=== PATIENT | female | born 1965 | race Caucasian/White ===

== ENCOUNTER 2024-04-16 13:52 | Outpatient (AMB) | payer BC, SELFPAY ==
[2024-04-16 14:08] VITALS: BP 138/60; PULSE 70; O2SAT 98; BMI 24.7
--- NOTE | 2024-04-16 14:08 | HO.NEPHOV_ITS ---
Vital Signs 04/16/24 14:08 Height 5 ft 6 in Weight 153 lb 4 oz BMI 24.7 BP 138/60 Blood Pressure Location Rt brachial Position Sitting Pulse 70 Pulse Source Pulse Oximeter Pulse Oximetry (%) 98 Oxygen Delivery Method Room Air Intake Visit Reasons: Prev Pt/ Conf Front Office Spec Required: No Accompanied by: Spouse Allergies No Known Allergies Allergy (Verified 04/16/24 14:10) Medication List - Last Reconciled 04/16/24 by Eleuterio Jefferson MD amlodipine 2.5 mg PO DAILY certolizumab pegol (Cimzia) mg subcut ferrous gluconate 324 mg PO BID hydroxychloroquine 200 mg PO BID HPI Comments Details: Cristiana 57 woman with a history of psoriatic arthritis, uveitis/MCTD/SLE. She was diagnosed with lupus more than 30 years ago. She was on Humira 40 mg weekly 2 doses and then every other week. She was referred back in 05/09/2022 for elevated serum creatinine 1.4. Since then creatinine has been between 1.1.2 mg/dL. In the past she had a trial of methotrexate which was discontinued due to hair loss. Recently she had a CT scan in 07/09/2023 which showed hilar adenopathy. She was seen by packaging design engineer and a CT scan with IV contrast has been recommended. Recent serum creatinine was 1.7 mg/dL. This is higher than the baseline. [facility] Medical History (Updated 04/16/24 @ 14:23 by Eleuterio Jefferson MD) Uveitis Psoriasis Mixed collagen vascular disease Hypertension Surgical History (Updated 04/15/24 @ 13:35 by Nydia Mcgraw MA) History of cholecystectomy Family History (Updated 04/15/24 @ 13:40 by Nydia Mcgraw MA) Mother Hypertension Diabetes Cancer Sister Diabetes Hypertension Brother Hypertension Diabetes Maternal Aunt Diabetes Cancer Social History (Updated 04/16/24 @ 14:13 by Nydia Mcgraw MA) Alcohol intake: current Comment: Rare Patient Tobacco Use Status: Current someday Tobacco user Review of Systems Const Denies fever(s) and Denies weight loss Card Denies chest pain Resp Denies cough and Denies hemoptysis GI Denies abdominal pain, Denies diarrhea and Denies nausea Musc Denies back pain Neuro Denies focal weakness Physical Exam Vital Signs: Last Vital Signs Pulse 70 04/16/24 14:08 BP 138/60 04/16/24 14:08 Pulse Ox 98 04/16/24 14:08 Oxygen Delivery Method Room Air 04/16/24 14:08 BMI result Body Mass Index 24.7 Const General: comfortable; No acute distress Orientation/consciousness: patient oriented x3 Eyes General: appearance normal, both eyes and all related structures Visual Salomon: normal visual salomon by confrontation Neck Neck: Yes supple and Yes no JVD Resp Effort & Inspection: normal respiratory effort and respiratory effort not decreased Auscultation: rhonchi Cardio Palpation: no palpable S3 and no palpable S4 Heart sounds: no rubs GI Inspection: Yes normal to inspection Palpation (GI): Soft to palpation Percussion: Yes normal to percussion Auscultation: normal bowel sounds General: Yes no CVA tenderness Back/Spine/Pelvis Back: no CVA tenderness Skin General skin exam: no petechiae and no purpura Neuro General: patient oriented x3 and no focal motor deficits Extrem General: No clubbing and No edema Results Reviewed Results Reviewed: Labs was reviewed Creatinine 1.7. Nephrology Results: No Data to Display Assessment & Plan Assessment & Plan (1) CKD (chronic kidney disease): Code(s): N18.9 - Chronic kidney disease, unspecified Category: Medical Plan Rolanda has chronic kidney disease with a baseline creatinine is around 1.4 mg/dL in the setting of connective tissue disease overlap syndrome/lupus/M CTD. Recently she was found to have mediastinal lymphadenopathy. Creatinine is bumped to 1.7. This may be due to hypoperfusion. Clinically she appears euvolemic no edema. Stop Lasix. Recheck renal panel without diuretics. She has at a risk for contrast induced nephropathy. If possible we should avoid IV contrast. However if the repeat serum creatinine is less than 1.5, we could consider CT scan with IV contrast. Other option would be to try alternate imaging techniques to evaluate the adenopathy without IV contrast. Orders: Orders Basic Metabolic Panel Today N18.9 - Chronic kidney disease, unspecified UA and rflx microscopic Today N18.9 - Chronic kidney disease, unspecified Creatinine Urine Today N18.9 - Chronic kidney disease, unspecified Total Protein Urine Random Today N18.9 - Chronic kidney disease, unspecified Coding Level of Care Code Est Pt Level 4 (64266) Diagnoses CKD (chronic kidney disease) N18.9
== END 2024-04-16 14:32 | disposition home or self-care (01) ==
PROVIDERS: Visit Provider Internal Medicine Hypertension Specialist
DX: N18.9 Chronic kidney disease, unspecified (principal)
CPT/HCPCS: 99214

== ENCOUNTER → 2024-04-16 13:52 | Outpatient (BNVA) | payer BC, SELFPAY | PROVIDERS: Visit Provider Internal Medicine Hypertension Specialist ==

== ENCOUNTER 2024-07-02 15:23 | Outpatient (AMB) | payer BC, SELFPAY ==
[2024-07-02 15:27] VITALS: BP 144/72; BMI 25.0
--- NOTE | 2024-07-02 15:27 | HO.NEPHOV_ITS ---
Vital Signs 07/02/24 15:27 Height 5 ft 6 in Weight 155 lb BMI 25.0 BP 144/72 H Blood Pressure Location Rt brachial Position Sitting Intake Visit Reasons: 3 mon follow up/ LVM Automotive Starter Repairer Required: No Accompanied by: Self / Same As Patient Allergies No Known Allergies Allergy (Verified 07/02/24 15:30) Medication List - Last Reconciled 07/02/24 by Eleuterio Jefferson MD amlodipine 2.5 mg PO DAILY certolizumab pegol (Cimzia) mg subcut ferrous gluconate 324 mg PO BID hydroxychloroquine 200 mg PO BID HPI Comments Details: Cristiana 57 woman with a history of psoriatic arthritis, uveitis/MCTD/SLE. She was diagnosed with lupus more than 30 years ago. She was on Humira 40 mg weekly 2 doses and then every other week. She was referred back in 05/09/2022 for elevated serum creatinine 1.4. Since then creatinine has been between 1.1.2 mg/dL. In the past she had a trial of methotrexate which was discontinued due to hair loss. Recently she had a CT scan in 07/09/2023 which showed hilar adenopathy. She was seen by bioinformatics support specialist and a CT scan with IV contrast has been recommended. Recent serum creatinine was 1.7 mg/dL. This is higher than the baseline. [facility] Medical History (Updated 04/16/24 @ 14:23 by Eleuterio Jefferson MD) Uveitis Psoriasis Mixed collagen vascular disease Hypertension Surgical History History of cholecystectomy Family History Mother Hypertension Diabetes Cancer Sister Diabetes Hypertension Brother Hypertension Diabetes Maternal Aunt Diabetes Cancer Social History Alcohol intake: current Comment: Rare Patient Tobacco Use Status: Current someday Tobacco user Physical Exam Vital Signs: Last Vital Signs BP 144/72 H 07/02/24 15:27 BMI result Body Mass Index 25.0 Const General: comfortable; No acute distress Orientation/consciousness: patient oriented x3 Eyes General: appearance normal, both eyes and all related structures Visual Salomon: normal visual salomon by confrontation Neck Neck: Yes supple and Yes no JVD Resp Effort & Inspection: normal respiratory effort and respiratory effort not decreased Auscultation: rhonchi Cardio Palpation: no palpable S3 and no palpable S4 Heart sounds: no rubs GI Inspection: Yes normal to inspection Palpation (GI): Soft to palpation Percussion: Yes normal to percussion Auscultation: normal bowel sounds General: Yes no CVA tenderness Back/Spine/Pelvis Back: no CVA tenderness Skin General skin exam: no petechiae and no purpura Neuro General: patient oriented x3 and no focal motor deficits Extrem General: No clubbing and No edema Results Reviewed Nephrology Results: No Data to Display Assessment & Plan Assessment & Plan (1) CKD (chronic kidney disease): Code(s): N18.9 - Chronic kidney disease, unspecified Category: Medical Plan Rolanda has chronic kidney disease with a baseline creatinine is around 1.4 mg/dL in the setting of connective tissue disease overlap syndrome/lupus/M CTD. Recently she was found to have mediastinal lymphadenopathy. Creatinine is bumped to 1.9. This may be due to hypoperfusion. Clinically she appears euvolemic no edema. Stopped Lasix and will repeat labs She has at a risk for contrast induced nephropathy. If possible we should avoid IV contrast. However if the repeat serum creatinine is less than 1.5, we could consider CT scan with IV contrast. Other option would be to try alternate imaging techniques to evaluate the adenopathy without IV contrast. BP sub optimal Increase Amlodipine to 5 mg QD stay on low salt diet. Orders: Orders Total Protein Urine Random Today N18.9 - Chronic kidney disease, unspecified UA and rflx microscopic Today N18.9 - Chronic kidney disease, unspecified Basic Metabolic Panel Today N18.9 - Chronic kidney disease, unspecified Creatinine Today N18.9 - Chronic kidney disease, unspecified Medications: Changed From amlodipine 2.5 mg PO DAILY To amlodipine 5 mg PO DAILY 90 tabs 1RF Coding Level of Care Code Est Pt Level 4 (29181) Diagnoses CKD (chronic kidney disease) N18.9
== END 2024-07-02 15:45 | disposition home or self-care (01) ==
PROVIDERS: Visit Provider Internal Medicine Hypertension Specialist
DX: N18.9 Chronic kidney disease, unspecified (principal)
CPT/HCPCS: 99214

== ENCOUNTER 2024-10-15 14:33 | Outpatient (AMB) | payer BC, SELFPAY ==
[2024-10-15 14:32] VITALS: BP 144/64; PULSE 79; O2SAT 100; BMI 24.9
--- NOTE | 2024-10-15 14:32 | HO.NEPHOV_ITS ---
Vital Signs 10/15/24 14:32 10/15/24 15:14 Height 5 ft 6 in Weight 154 lb BMI 24.9 BP 144/64 H 136/78 Blood Pressure Location Rt brachial Rt brachial Position Sitting Sitting Pulse 79 Pulse Source Pulse Oximeter Pulse Oximetry (%) 100 Oxygen Delivery Method Room Air Intake Visit Reasons: 3 Month Follow Up CKD/ Conf Nonprofit Fundraiser Required: No Accompanied by: Self / Same As Patient Allergies No Known Allergies Allergy (Verified 10/15/24 14:37) Medication List - Last Reconciled 10/15/24 by Eleuterio Jefferson MD amlodipine 5 mg PO DAILY certolizumab pegol (Cimzia) mg subcut ferrous gluconate 324 mg PO BID hydroxychloroquine 200 mg PO BID HPI Comments Details: Cristiana 57 woman with a history of psoriatic arthritis, uveitis/MCTD/SLE. She was diagnosed with lupus more than 30 years ago. She was on Humira 40 mg weekly 2 doses and then every other week. She was referred back in 05/09/2022 for elevated serum creatinine 1.4. Since then creatinine has been between 1.1.2 mg/dL. In the past she had a trial of methotrexate which was discontinued due to hair loss. Recently she had a CT scan in 07/09/2023 which showed hilar adenopathy. She was seen by supervisor type photography and a CT scan with IV contrast has been recommended. 10/15/24 Feels abdominal bloating; BM every 3 days. Takes Miralax Recent serum creatinine was 2.2 , up from 1.7 mg/dL. She had resp infection last month She was no specific complaints. Currently on Certolizimab [facility] Medical History (Updated 04/16/24 @ 14:23 by Eleuterio Jefferson MD) Uveitis Psoriasis Mixed collagen vascular disease Hypertension Surgical History History of cholecystectomy Family History Mother Hypertension Diabetes Cancer Sister Diabetes Hypertension Brother Hypertension Diabetes Maternal Aunt Diabetes Cancer Social History Alcohol intake: current Comment: Rare Patient Tobacco Use Status: Current someday Tobacco user Physical Exam Vital Signs: Last Vital Signs Pulse 79 10/15/24 14:32 BP 144/64 H 10/15/24 14:32 Pulse Ox 100 10/15/24 14:32 Oxygen Delivery Method Room Air 10/15/24 14:32 BMI result Body Mass Index 24.9 Const General: comfortable; No acute distress Orientation/consciousness: patient oriented x3 Eyes General: appearance normal, both eyes and all related structures Visual Salomon: normal visual salomon by confrontation Neck Neck: Yes supple and Yes no JVD Resp Effort & Inspection: normal respiratory effort and respiratory effort not decreased Auscultation: rhonchi Cardio Palpation: no palpable S3 and no palpable S4 Heart sounds: no rubs GI Inspection: Yes normal to inspection Palpation (GI): Soft to palpation Percussion: Yes normal to percussion Auscultation: normal bowel sounds General: Yes no CVA tenderness Back/Spine/Pelvis Back: no CVA tenderness Skin General skin exam: no petechiae and no purpura Neuro General: patient oriented x3 and no focal motor deficits Extrem General: No clubbing and No edema Results Reviewed Results Reviewed: cr 2.27 Nephrology Results: No Data to Display Assessment & Plan Assessment & Plan (1) CKD (chronic kidney disease): Code(s): N18.9 - Chronic kidney disease, unspecified Category: Medical Plan Rolanda has chronic kidney disease with a baseline creatinine is around 1.4 mg/dL in the setting of connective tissue disease overlap syndrome/lupus/M CTD. Recently she was found to have mediastinal lymphadenopathy. Creatinine is bumped to 1.9. This may be due to hypoperfusion. Clinically she appears euvolemic no edema. Stopped Lasix and will repeat labs She has at a risk for contrast induced nephropathy. If possible we should avoid IV contrast. However if the repeat serum creatinine is less than 1.5, we could consider CT scan with IV contrast. Other option would be to try alternate imaging techniques to evaluate the adenopathy without IV contrast. BP better controlled Keep Amlodipine 5 mg QD stay on low salt diet. 10/15/24 Worsening creatinine Is this related to Cimzia? 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 Repeat renal panel today along with urine studies and serologies If renal fx worsens , will obtain a kidney biopsy Orders: Orders Comprehensive Met. Panel Today N18.9 - Chronic kidney disease, unspecified Creatinine Urine Today N18.9 - Chronic kidney disease, unspecified Total Protein Urine Random Today N18.9 - Chronic kidney disease, unspecified Neutrophil Cytoplasma Ab Today N18.9 - Chronic kidney disease, unspecified Complement C4 Today N18.9 - Chronic kidney disease, unspecified Anti Glomerular Basement Memb Today N18.9 - Chronic kidney disease, unspecified Complete Blood Count no Diff Today N18.9 - Chronic kidney disease, unspecified UA and rflx microscopic Today N18.9 - Chronic kidney disease, unspecified Complement C3 Today N18.9 - Chronic kidney disease, unspecified Protein Electrophoresis, Serum Today N18.9 - Chronic kidney disease, unspecified Coding Level of Care Code Est Pt Level 4 (82590) Diagnoses CKD (chronic kidney disease) N18.9
[2024-10-15 15:14] VITALS: BP 136/78
--- OUTSIDE RECORDS SUMMARY | 2024-10-15 17:59 | XMS_ITS | Clinical Summary ---
Author Organization [facility] Address [address] [place] [address] Care Team Providers Care Production Assembly Operator Name Role Phone Roque Jorge Luisclara Carrie AG Primary Care Provider [phone] Allergies No known active allergies Medications Medication Sig Dispensed Refills Start Date End Date Status ergocalciferol (VITAMIN D2) capsule 80335 units Take 1 capsule (50,000 Units total) by mouth once a week. 0 04/22/2021 Active clobetasol (OLUX) 0.05 % topical foamIndications:P soriasis Apply topically 2 (two) times a day. 50 g 0 07/27/2022 Active furosemide (LASIX) 20 MG tablet 0 11/03/2022 Active Vtama 1 % CREA Apply TO affected AREA ONCE A DAY 0 03/26/2023 Active hydroCHLOROthiazi de (HYDRODIURIL) tablet 12.5 mg 0 04/10/2023 Active hydrOXYzine (ATARAX) 10 MG tablet TAKE 1 TO 2 TABLETS BY MOUTH AT BEDTIME NEEDED FOR FLARES 0 05/31/2023 Active estradiol-norethi ndrone (ACTIVELLA) 1-0.5 MG per tablet Take 1 tablet by mouth daily. 0 Active certolizumab pegol (CIMZIA) 2 X 200 MG KIT injectionIndicati ons:PSA (psoriatic arthritis) (HCC) INJECT 400MG (2 SYRINGES) SUBCUTANEOUSLY EVERY 4 WEEKS 3 kit 2 11/08/2023 Active Cimzia, 2 Syringe, 200 MG/ML PSKT INJECT 400MG (2 SYRINGES) SUBCUTANEOUSLY EVERY 4 WEEKS 3 each 0 06/06/2024 Active amLODIPine (NORVASC) tablet 5 mg Take 1 tablet (5 mg total) by mouth daily. 0 07/02/2024 Active hydroxychloroquin e (PLAQUENIL) 200 MG tabletIndications :MCTD (mixed connective tissue disease) (HCC) Take 1 tablet (200 mg total) by mouth 2 (two) times a day. 180 tablet 1 07/11/2024 Active Active Problems Problem Noted Date Diagnosed Date MCTD (mixed connective tissue disease) PSA (psoriatic arthritis) 09/20/2020 Psoriasis 09/20/2020 High risk medication use 03/29/2020 Osteoporosis screening 07/18/2019 SLE (systemic lupus erythematosus) 06/04/2019 Uveitis 06/04/2019 Social History Tobacco Use Types Packs/Day Years Used Date Smoking Tobacco: Light Smoker Cigarettes Smokeless Tobacco: Never Tobacco Cessation:Ready to Q uit: Not Asked; Counseling Given: Not Answered Alcohol Use Standard Drinks/Week Comments No 0 (1 standard drink = 0.6 oz pur e alcohol) Sex and Gender Information Value Date Recorded Sex Assigned at Female 10/02/2018 6:29 PM EST Gender Identity Not on file Sexual Orientation Not on file Job Start Date Occupation Industry Not on file Not on file Not on file Last Filed Vital Signs Vital Sign Reading Time Taken Comments Blood Pressure 144/89 07/11/2024 11:42 AM EST Pulse 81 07/11/2024 11:42 AM EST Temperature 36.8 ??C (98.3 ??F) 07/13/2023 12:[address] Respiratory Rate 16 05/16/2024 12:49 PM EDT Oxygen Saturation 98% 05/16/2024 12:49 PM EDT Inhaled Oxygen Concentration - - Weight 68 kg (150 lb) 07/11/2024 11:42 AM EST Height 167.6 cm (5' 6 ) 07/11/2024 11:42 AM EST Body Mass Index 24.21 07/11/2024 11:42 AM EST Plan of Treatment Health Maintenance Due Date Last Done Comments COVID-19 Vaccine (#1) 1964 Depression Screening 1976 Preventative Health Evaluation 1982 Tobacco Cessation Counseling 1982 Cervical Cancer Screening (Pap Smear) 1985 Colon Cancer Screening (Colonoscopy) 2009 Breast Cancer Screening (Mammogram) 2014 Shingrix-Zoster Vaccine (2 of 2) 06/29/2023 05/04/2023 Influenza Vaccine (#1) 2024 DTap / Tdap / Td (2 - Td or Tdap) 11/04/2024 11/04/2014 BMI Counseling 07/11/2025 07/11/2024, 02/17, 11/02/2023, Additional history exists RSV Adult > 60+ Yrs or (1 - 1-dose 75+ series) 2039 Hepatitis C Screening Completed 09/29/2022, 022 Pneumococcal Vaccine Completed 05/06/2023 Hepatitis B Vaccines Aged Out No long er eligible based on patient's age to complete this topic RSV Ped < 20 months Aged Out No longe r eligible based on patient's age to complete this topic Care Teams Production Assembly Operator Relationship Specialty Start Date End Date Tiarra Nevarez APRN [address] [place] [id number] PCP - General Family Medicine 10/02/18
--- OUTSIDE RECORDS SUMMARY | 2024-10-15 17:59 | XMS_ITS | Clinical Summary ---
Author Organization [facility] Address [address] [place] [address] Phone Care Team Providers Care Lead Retail Sales Associate Name Role Phone Tiarra Nevarez Primary Care Provider [phone] Medical History Medical History Date Comments Arthritis DX:Arthritis;COM MENT:RA Hypertension DX:Hypertension Uveitis DX:Uveitis Lupus DX:Lupus Psoriatic arthritis (CMS/HCC) DX :Psoriatic arthritis (HCC) Social History Tobacco Use Types Packs/Day Years Used Date Smoking Tobacco: Light Smoker Smokeless Tobacco: Never Alcohol Use Standard Drinks/Week Comments No 0 (1 standard drink = 0.6 oz pur e alcohol) Comments Unknown Sex and Gender Information Value Date Recorded Sex Assigned at Not on file Legal Sex Female 11:49 AM EST Gender Identity Not on file Sexual Orientation Not on file Obstetrics History Last Filed Vital Signs Vital Sign Reading Time Taken Comments Blood Pressure 131/82 03/07/2024 10:58 AM EDT Pulse 84 05/16/2024 12:49 PM EDT Temperature - - Respiratory Rate - - Oxygen Saturation - - Inhaled Oxygen Concentration - - Weight 69.4 kg (153 lb) 05/16/2024 12:49 PM EDT Height 167.6 cm (5' 6 ) 05/16/2024 12:49 PM EDT Body Mass Index 24.69 05/16/2024 12:49 PM EDT Plan of Treatment Health Maintenance Due Date Last Done Comments Breast Cancer Screening 1965 Cervical Cancer Screening: Pap Smear 1985 Cholesterol Screening (Lipid Panel) 07/28/2022 Colorectal Cancer Screening: Colonoscopy 07/28/2022 Depression Screening 07/28/2022 HIV Screening 07/28/2022 Hepatitis C Screening 07/28/2022 Social Influencers of Health Screening 07/28/2022 Zoster Vaccines (2 of 2) 06/29/2023 05/04/2023 COVID-19 Vaccine (4 - season) 2024 08/26/2021, 12/23/2020, 11/16/2020 Influenza Vaccine (#1) 2024 DTaP,Tdap,and Td Vaccines (2 - Td or Tdap) 11/04/2024 11/04/2014 Hypertension/CHF/CAD Annual BMP Blood Test 09/15/2025 09/15/2024, 09/15/2024, 07/05/2024, Additional history exists RSV Immunization Patients 60+ Years Old (1 - 1-dose 75+ series) 2039 Pneumococcal Vaccine: 50+ Years Completed 05/06/2023 Pneumococcal Vaccine: Pediatrics (0 to 5 Years) and At-Risk Patients (6 to 64 Years) Completed 05/06/2023 HIB Vaccines Aged Out No longer eligi ble based on patient's age to complete this topic HPV Vaccines Aged Out No longer eligi ble based on patient's age to complete this topic Hepatitis A Vaccines Aged Out No long er eligible based on patient's age to complete this topic Hepatitis B Vaccines Aged Out No long er eligible based on patient's age to complete this topic IPV Vaccines Aged Out No longer eligi ble based on patient's age to complete this topic MMR Vaccines Aged Out No longer eligi ble based on patient's age to complete this topic Meningococcal ACWY Vaccine Aged Out N o longer eligible based on patient's age to complete this topic Meningococcal B Vacine Aged Out No lo nger eligible based on patient's age to complete this topic RSV Immunization Patients Under 20 months Aged Out No longer eligible based on patient's age to complete this topic Varicella Vaccines Aged Out No longer eligible based on patient's age to complete this topic Procedures Procedure Name Priority Date/Time Associated Diagnosis Comments CBC WITH AUTO DIFFERENTIAL Routine 09/15/2024 3:41 PM EST Need for prophylactic chemotherapy Nonspecific abnormal results of kidney function study Mixed connective tissue disease (CMS/HCC) URINALYSIS WITH MICROSCOPIC REFLEX CULTURE Routine 09/15/2024 3:41 PM EST Need for prophylactic chemotherapy Nonspecific abnormal results of kidney function study Mixed connective tissue disease (CMS/HCC) COMPLEMENT, TOTAL Routine 09/15/2024 3:4 1 PM EST Need for prophylactic chemotherapy Nonspecific abnormal results of kidney function study Mixed connective tissue disease (CMS/HCC) C4 COMPLEMENT Routine 09/15/2024 3:41 PM EST Need for prophylactic chemotherapy Nonspecific abnormal results of kidney function study Mixed connective tissue disease (CMS/HCC) C3 COMPLEMENT Routine 09/15/2024 3:41 PM EST Need for prophylactic chemotherapy Nonspecific abnormal results of kidney function study Mixed connective tissue disease (CMS/HCC) SEDIMENTATION RATE Routine 09/15/2024 3: 41 PM EST Need for prophylactic chemotherapy Nonspecific abnormal results of kidney function study Mixed connective tissue disease (CMS/HCC) C-REACTIVE PROTEIN Routine 09/15/2024 3: 41 PM EST Need for prophylactic chemotherapy Nonspecific abnormal results of kidney function study Mixed connective tissue disease (CMS/HCC) COMPREHENSIVE METABOLIC PANEL Routine 09/15/2024 3:41 PM EST Need for prophylactic chemotherapy Nonspecific abnormal results of kidney function study Mixed connective tissue disease (CMS/HCC) CBC AND DIFFERENTIAL Routine 09/15/2024 3:41 PM EST Need for prophylactic chemotherapy Nonspecific abnormal results of kidney function study Mixed connective tissue disease (CMS/HCC) URINALYSIS WITH MICROSCOPIC REFLEX CULTURE Routine 09/15/2024 3:41 PM EST Need for prophylactic chemotherapy Nonspecific abnormal results of kidney function study Mixed connective tissue disease (CMS/HCC) URINALYSIS WITH MICROSCOPIC REFLEX CULTURE Routine 09/15/2024 3:40 PM EST Chronic kidney disease, unspecified BASIC METABOLIC PANEL Routine 09/15/2024 3:40 PM EST Chronic kidney disease, unspecified URINALYSIS WITH MICROSCOPIC REFLEX CULTURE Routine 09/15/2024 3:40 PM EST Chronic kidney disease, unspecified PROTEIN, URINE, RANDOM Routine 09/15/2024 3:40 PM EST Chronic kidney disease, unspecified from Last 3 Months Results * (ABNORMAL) Urinalysis with microscopic reflex culture (09/15/2024 3:41 PM EST) Only the most recent of2 resultswithin the time period is included. Color, Urine Yellow Colorless, Yellow LAB URINALYSIS - AUTOMATED METHOD 09/15/2024 3:50 PM [facility] Clarity, Urine Clear Clear LAB URINALYSIS - AUTOMATED METHOD 09/15/2024 3:50 PM [facility] Specific [place] Urine 1.020 1.005 - 1.030 LAB URINALYSIS - AUTOMATED METHOD 09/15/2024 3:50 PM [facility] pH, Urine 6.5 5.0 - 8.0 pH LAB URINALYSIS - AUTOMATED METHOD 09/15/2024 3:50 PM [facility] Leukocytes, Urine Negative Negative WBCs/mcL LAB URINALYSIS - AUTOMATED METHOD 09/15/2024 3:50 PM [facility] Nitrite, Urine Negative Negative LAB URINALYSIS - AUTOMATED METHOD 09/15/2024 3:50 PM [facility] Protein, Urine 30(A) Negative mg/dL LAB URINALYSIS - AUTOMATED METHOD 09/15/2024 3:50 PM [facility] Glucose, Urine Negative Negative mg/dL LAB URINALYSIS - AUTOMATED METHOD 09/15/2024 3:50 PM [facility] Ketones, Urine Negative Negative mg/dL LAB URINALYSIS - AUTOMATED METHOD 09/15/2024 3:50 PM [facility] Blood, Urine Negative Negative mg/dL LAB URINALYSIS - AUTOMATED METHOD 09/15/2024 3:50 PM [facility] RBC, Urine 2 0 - 3 /HPF 09/15/2024 3:50 PM EST [facility] WBC, Urine 2 0 - 5 /HPF 09/15/2024 3:50 PM EST [facility] Urine Urine specimen obtained by clean catch procedure / Unknown Non-blood Collection / Unknown 09/15/2024 3:41 PM EST 09/15/2024 3:44 PM EST us Olivia ALVAREZ LAB URINE ORDERABLES Final Resul t [facility] [address] [place] [address], [place] [phone] * (ABNORMAL) CBC auto differential (09/15/2024 3:41 PM EST) WBC 5.3 4.0 - 10.5 K/mcL LAB HEMETOLOGY METHOD 09/15/2024 3:48 PM [facility] RBC 3.44(L) 4.20 - 5.40 M/mcL LAB HEMETOLOGY METHOD 09/15/2024 3:48 PM [facility] Hemoglobin 9.5(L) 12.5 - 16.0 g/dL LAB HEMETOLOGY METHOD 09/15/2024 3:48 PM [facility] Hematocrit 29.7(L) 37.0 - 47.0 % LAB HEMETOLOGY METHOD 09/15/2024 3:48 PM [facility] MCV 86.3 78.0 - 100.0 FL LAB HEMETOLOGY METHOD 09/15/2024 3:48 PM [facility] MCH 27.6 25.0 - 33.0 pcg LAB HEMETOLOGY METHOD 09/15/2024 3:48 PM [facility] MCHC 32.0 32.0 - 36.0 g/dL LAB HEMETOLOGY METHOD 09/15/2024 3:48 PM [facility] RDW 14.4 12.1 - 16.2 % LAB HEMETOLOGY METHOD 09/15/2024 3:48 PM [facility] Platelets 326 150 - 450 K/mcL LAB HEMETOLOGY METHOD 09/15/2024 3:48 PM [facility] MPV 8.9 7.4 - 11.4 FL LAB HEMETOLOGY METHOD 09/15/2024 3:48 PM [facility] Neutrophils Relative 45.5 44.0 - 74.0 % LAB HEMETOLOGY METHOD 09/15/2024 3:48 PM [facility] Lymphocytes Relative 31.1 20.0 - 48.0 % LAB HEMETOLOGY METHOD 09/15/2024 3:48 PM [facility] Monocytes Relative 13.6(H) 2.0 - 12.0 % LAB HEMETOLOGY METHOD 09/15/2024 3:48 PM [facility] Eosinophils Relative 8.3(H) 0.0 - 6.0 % LAB HEMETOLOGY METHOD 09/15/2024 3:48 PM [facility] Basophils Relative 0.9 0.0 - 2.0 % LAB HEMETOLOGY METHOD 09/15/2024 3:48 PM [facility] Neutrophils Absolute 2.41 1.80 - 7.80 K/mcL LAB HEMETOLOGY METHOD 09/15/2024 3:48 PM [facility] Lymphocytes Absolute 1.65 1.00 - 3.20 K/mcL LAB HEMETOLOGY METHOD 09/15/2024 3:48 PM [facility] Monocytes Absolute 0.72 0.00 - 0.80 K/mcL LAB HEMETOLOGY METHOD 09/15/2024 3:48 PM EST [facility] Eosinophils Absolute 0.44 0.00 - 0.50 K/mcL LAB HEMETOLOGY METHOD 09/15/2024 3:48 PM EST [facility] Basophils Absolute 0.05 0.00 - 0.20 K/mcL LAB HEMETOLOGY METHOD 09/15/2024 3:48 PM EST [facility] Blood Venous blood specimen / Unknown Venipuncture / Unknown 09/15/2024 3:41 PM EST 09/15/2024 3:45 PM EST us [employer] PA LAB BLOOD ORDERABLES Final Resul t Performing Organization Address City/[facility]/ZIP Co de Phone Number [facility] [address] [place] [address], [place] [phone] * (ABNORMAL) Sedimentation rate (09/15/2024 3:41 PM EST) Sed Rate 22(H) 0 - 20 mm/hr LAB HEMETOLOGY METHOD 09/15/2024 3:52 PM EST [facility] Blood Venous blood specimen / Unknown Venipuncture / Unknown 09/15/2024 3:41 PM EST 09/15/2024 3:45 PM EST [employer] PA LAB BLOOD ORDERABLES Final Resul t [facility] [address] [place] [address], [place] [phone] * (ABNORMAL) Complement, total (09/15/2024 3:41 PM EST) Complement, Total (CH50) 98(H) 42 - 95 U/mL 09/19/2024 4:25 AM EST [facility] Comment: Test performed at [facility], [address], [place], [place] ??[address] ? [phone] Frances Abdalla MD, PhD - Library Paraprofessional Blood Venous blood specimen / Unknown Venipuncture / Unknown 09/15/2024 3:41 PM EST 09/15/2024 3:45 PM EST us Olivia Balbina PA LAB BLOOD ORDERABLES Final Resul t [address] [place] [address] * C3 complement (09/15/2024 3:41 PM EST) C3 Complement 107 87 - 200 mg/dL LAB CHEMISTRY METHOD 09/15/2024 8:03 PM EST [facility] Blood Venous blood specimen / Unknown Venipuncture / Unknown 09/15/2024 3:41 PM EST 09/15/2024 3:45 PM EST us Olivia Balbina PA LAB BLOOD ORDERABLES Final Resul t Performing Organization Address City/[facility]/ZIP Co de Phone Number [facility] [address] [place] [address], [place] [phone] * C4 complement (09/15/2024 3:41 PM EST) C4 Complement 34 19 - 52 mg/dL LAB CHEMISTRY METHOD 09/15/2024 8:04 PM EST [facility] Blood Venous blood specimen / Unknown Venipuncture / Unknown 09/15/2024 3:41 PM EST 09/15/2024 3:45 PM EST us Olivia Balbina PA LAB BLOOD ORDERABLES Final Resul t Performing Organization Address City/[facility]/ZIP Co de Phone Number [facility] [address] [place] [address], [place] [phone] * (ABNORMAL) C-reactive protein (09/15/2024 3:41 PM EST) [facility] C-Reactive Protein 6.2(H) <=0.9 mg/dL LAB CHEMISTRY METHOD 09/15/2024 4:05 PM [facility] Blood Venous blood specimen / Unknown Venipuncture / Unknown 09/15/2024 3:41 PM EST 09/15/2024 3:51 PM EST Olivia ALVAREZ LAB BLOOD ORDERABLES Final Resul t [facility] [address] [place] [address], [place] [phone] * (ABNORMAL) Comprehensive metabolic panel (09/15/2024 3:41 PM EST) [facility] Sodium 136 135 - 145 mmol/L LAB CHEMISTRY METHOD 09/15/2024 4:05 PM [facility] Potassium 4.2 3.5 - 5.1 mmol/L LAB CHEMISTRY METHOD 09/15/2024 4:05 PM [facility] Chloride 103 98 - 107 mmol/L LAB CHEMISTRY METHOD 09/15/2024 4:05 PM [facility] CO2 26 24 - 32 mmol/L LAB CHEMISTRY METHOD 09/15/2024 4:05 PM [facility] Anion Gap 7 5 - 14 LAB CHEMISTRY METHOD 09/15/2024 4:05 PM [facility] Glucose 102 70 - 199 mg/dL LAB CHEMISTRY METHOD 09/15/2024 4:05 PM [facility] BUN 33(H) 7 - 17 mg/dL LAB CHEMISTRY METHOD 09/15/2024 4:05 PM [facility] Creatinine 2.26(H) 0.50 - 1.00 mg/dL LAB CHEMISTRY METHOD 09/15/2024 4:05 PM [facility] eGFR 24(L) >=60 mL/min/1. 73m2 LAB CHEMISTRY METHOD 09/15/2024 4:05 PM [facility] Comment:Calculation based on the??Chronic Kidney Disease Epidemiology Collaboration (CKD-EPI) equation refit??without adjustment for race. BUN/Creatinine Ratio 14.6 12.0 - 20.0 LAB CHEMISTRY METHOD 09/15/2024 4:05 PM [facility] Calcium 9.2 8.4 - 10.2 mg/dL LAB CHEMISTRY METHOD 09/15/2024 4:05 PM [facility] AST (SGOT) 12 5 - 40 unit/L LAB CHEMISTRY METHOD 09/15/2024 4:05 PM [facility] ALT (SGPT) 7 7 - 52 unit/L LAB CHEMISTRY METHOD 09/15/2024 4:05 PM [facility] Alkaline Phosphatase 87 34 - 104 unit/L LAB CHEMISTRY METHOD 09/15/2024 4:05 PM [facility] Total Protein 7.3 6.4 - 8.5 g/dL LAB CHEMISTRY METHOD 09/15/2024 4:05 PM [facility] Albumin 4.0 3.5 - 5.0 g/dL LAB CHEMISTRY METHOD 09/15/2024 4:05 PM [facility] Total Bilirubin 0.3 0.3 - 1.0 mg/dL LAB CHEMISTRY METHOD 09/15/2024 4:05 PM [facility] Blood Venous blood specimen / Unknown Venipuncture / Unknown 09/15/2024 3:41 PM EST 09/15/2024 3:51 PM EST us Olivia ALVAREZ LAB BLOOD ORDERABLES Final Resul t [facility] [address] [place] [address], [place] [phone] * Protein, urine, random (09/15/2024 3:40 PM EST) [facility] Protein, Urine 20 >=14 mg/dL LAB CHEMISTRY METHOD 09/15/2024 8:45 PM EST [facility] Urine Urine specimen obtained by clean catch procedure / Unknown Non-blood Collection / Unknown 09/15/2024 3:40 PM EST 09/15/2024 3:44 PM EST Eleuterio Jefferson MD LAB URINE ORDERABL ES Final Result [facility] [address] [place] [address], [place] [phone] * (ABNORMAL) Basic metabolic panel (09/15/2024 3:40 PM EST) [facility] Sodium 136 135 - 145 mmol/L LAB CHEMISTRY METHOD 09/15/2024 4:07 PM [facility] Potassium 4.2 3.5 - 5.1 mmol/L LAB CHEMISTRY METHOD 09/15/2024 4:07 PM [facility] Chloride 103 98 - 107 mmol/L LAB CHEMISTRY METHOD 09/15/2024 4:07 PM [facility] CO2 26 24 - 32 mmol/L LAB CHEMISTRY METHOD 09/15/2024 4:07 PM [facility] Anion Gap 7 5 - 14 LAB CHEMISTRY METHOD 09/15/2024 4:07 PM [facility] Glucose 102 70 - 199 mg/dL LAB CHEMISTRY METHOD 09/15/2024 4:07 PM [facility] BUN 33(H) 7 - 17 mg/dL LAB CHEMISTRY METHOD 09/15/2024 4:07 PM [facility] Creatinine 2.26(H) 0.50 - 1.00 mg/dL LAB CHEMISTRY METHOD 09/15/2024 4:07 PM EST [facility] eGFR 24(L) >=60 mL/min/1. 73m2 LAB CHEMISTRY METHOD 09/15/2024 4:07 PM EST [facility] Comment:Calculation based on the??Chronic Kidney Disease Epidemiology Collaboration (CKD-EPI) equation refit??without adjustment for race. BUN/Creatinine Ratio 14.6 12.0 - 20.0 LAB CHEMISTRY METHOD 09/15/2024 4:07 PM [facility] Calcium 9.2 8.4 - 10.2 mg/dL LAB CHEMISTRY METHOD 09/15/2024 4:07 PM [facility] Blood Venous blood specimen / Unknown Venipuncture / Unknown 09/15/2024 3:40 PM EST 09/15/2024 3:46 PM EST Eleuterio Jefferson MD LAB BLOOD ORDERABL ES Final Result [facility] [address] [place] [address], [place] [phone] from Last 3 Months Insurance [facility] ([facility]) Care Teams Lead Retail Sales Associate Relationship Specialty Start Date End Date Tiarra Nevarez FNP [address] [place] [id number] PCP - General Family Medicine 10/02/18
--- OUTSIDE RECORDS SUMMARY | 2024-10-15 17:59 | XMS_ITS | Clinical Summary ---
Author Organization [facility] Address [address] [place] [address] Care Team Providers Care Branding Specialist Name Role Phone Veena Arellano MD Primary Care Provider [phone] Veena Arellano MD Unavailable [phone] Medications hydroCHLOROth iazide (HYDRODIURIL) 25 MG tablet HydroCHLOROthiazide 25MG, 1 Tablet daily #0, starting 12/05/2016, No Refill. Active. 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 Comments Unknown Sex and Gender Information Value Date Recorded Sex Assigned at Not on file Legal Sex Female 8:13 PM EDT Gender Identity Not on file Sexual Orientation Not on file Last Filed Vital Signs Vital Sign Reading Time Taken Comments Blood Pressure 138/80 12/05/2016 4:42 PM EDT LUE/Sitting LUE/Sitting Pulse - - Temperature 37.1 ??C (98.7 ??F) 12/05/2016 4 :41 PM EDT Respiratory Rate - - Oxygen Saturation 98% 12/05/2016 4:4 1 PM EDT Inhaled Oxygen Concentration - - Weight 74.5 kg (164 lb 3.9 oz) 12/05/2016 4:41 PM EDT Height 163.2 cm (5' 4.25 ) 12/05/2016 4 :41 PM EDT Body Mass Index 27.97 12/05/2016 4:41 PM EDT Plan of Treatment Health Maintenance Due Date Last Done Comments Hepatitis C Screening 1964 Pap Smear 1980 DTaP/Tdap/Td (1 - Tdap) 1982 Mammogram/Breast Imaging 2004 Pneumococcal 50+ years (1 of 1 - PCV) 2014 Zoster (Shingrix) (1 of 2) 2014 COVID-19 Vaccine ( - 2023-2 5 season) 2024 Influenza (#1) 2024 RSV (1 - 1-dose 75+ series) 2039 HPV Vaccine Aged Out No longer eligi ble based on patient's age to complete this topic Hep A Aged Out No longer eligi ble based on patient's age to complete this topic Hep B Aged Out No longer eligi ble based on patient's age to complete this topic Hib Aged Out No longer eligi ble based on patient's age to complete this topic Meningococcal ACWY Aged Out No longer eligible based on patient's age to complete this topic Zoster (Zostavax) Discontinued Care Teams Branding Specialist Relationship Specialty Start Date End Date Veena Arellano MD [address] [address] PCP - General 03/26/23 Veena Arellano MD [address] [address] PCP - Backup PCP Family Medicine 09/20/23
--- OUTSIDE RECORDS SUMMARY | 2024-10-15 17:59 | XMS_ITS | Clinical Summary ---
Author Organization [facility] Address [address] [place] [address] Phone Care Team Providers Care Freight Brake Operator Name Role Phone Tiarra Nevarez ÓSCAR Primary Care Provider [phone] Allergies No known active allergies Medications dorzolamide-justice olol (COSOPT) 22.3-6.8 MG/ML ophthalmic solution 1 drop 2 (two) times a day Active ergocalciferol 1.25 MG (89054 UT) capsule Take 50,000 Units by mouth 1 (one) time per week Active hydroxychloroqu ine (PLAQUENIL) 200 MG tablet Take 200 mg by mouth 1 (one) time each day Active [facility] Senna Plus 8.6-50 MG per tablet Take 1 tablet by mouth 2 (two) times a day 2 Active clobetasol (OLUX) 0.05 % topical foam Apply topically 2 (two) times a day 2 Active triamcinolone (KENALOG) 0.025 % cream Apply topically 2 (two) times a day Active furosemide (LASIX) 20 MG tablet Take 1 tablet (20 mg total) by mouth 1 (one) time each day if needed (for edema) 30 tablet 2 2 Active Cimzia 2 X 200 MG/ML Prefilled Syringe Kit 3 Active amLODIPine (Norvasc) 2.5 MG tablet Take 1 tablet (2.5 mg total) by mouth 1 (one) time each day 30 tablet 11 3 Active Active Problems Problem Noted Date Diagnosed Date 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 Psoriatic arthritis 09/20/2020 Psoriasis 09/20/2020 Taking high risk medication 03/29/2020 Osteoporosis screening 07/18/2019 Systemic lupus erythematosus 06/04/2019 Uveitis 06/04/2019 Family History Medical History Relation Comments Diabetes Brother Hypertension Brother Cancer Mother Diabetes Mother Hypertension Mother Diabetes Mother's Brother Cancer Mother's Sister Diabetes Mother's Sister Diabetes Sister Hypertension Sister Relation Status Comments Brother Mother Mother's Brother Mother's Sister Sister Social History Tobacco Use Types Packs/Day Years Used Date Smoking Tobacco: Some Days Cigarettes Smokeless Tobacco: Never Tobacco Cessation:Ready to Q uit: Not Asked; Counseling Given: Not Answered Alcohol Use Standard Drinks/Week Comments Not Currently 0 (1 standard drink = 0.6 oz pur e alcohol) Comments Unknown Sex and Gender Information Value Date Recorded Sex Assigned at Not on file Legal Sex Female 2:23 PM EDT Gender Identity Not on file Sexual Orientation Not on file Last Filed Vital Signs Vital Sign Reading Time Taken Comments Blood Pressure 142/80 05/15/2023 2:54 PM EDT Pulse 74 05/15/2023 2:54 PM EDT Temperature - - Respiratory Rate - - Oxygen Saturation 99% 05/15/2023 2:54 PM EDT Inhaled Oxygen Concentration - - Weight 74.1 kg (163 lb 6.4 oz) 06/14/2022 9:33 A M EDT Height - - Body Mass Index - - Plan of Treatment Health Maintenance Due Date Last Done Comments Breast Cancer Screening 1964 Pneumococcal Vaccine: Pediat rics (0 to 5 Years) and At-Risk Patients (6 to 64 Years) (1 of 2 - PCV) 1970 Colorectal Cancer Screening: Annual FOBT 2013 Colorectal Cancer Screening: Colonoscopy 2013 Colorectal Cancer Screening: Sigmoidoscopy 2013 Influenza Vaccine (#1) 2024 Hepatitis B Vaccine Aged Out No longe r eligible based on patient's age to complete this topic Insurance [place] Care Teams Freight Brake Operator Relationship Specialty Start Date End Date Tiarra Nevarez ARNP [address] [place] [address] [address] [place] [address] PCP - General Nurse Practitioner 06/14/22
--- OUTSIDE RECORDS SUMMARY | 2024-10-15 17:59 | XMS_ITS | Encounter Summary ---
Author Organization [facility] Address [address] [place] [address] Care Team Providers Care Public Health Worker Name Role Phone Tiarra Nevarez APRN Primary Care Provide r Encounter Details Date Type Department Care Team (Late st Contact Info) Description 04/03/[address] [facility] [address] [facility] [address] [place] [address] Cyrus Lewis MD [address] [place] [address] Social History Tobacco Use Types Packs/Day Years Used Date Smoking Tobacco: Some Days Cigarettes Smokeless Tobacco: Never Comments:Cigarette once in a while Alcohol Use Standard Drinks/Week Comments Not Currently 0 (1 standard drink = 0.6 oz pur e alcohol) Sex and Gender Information Value Date Recorded Sex Assigned at Not on file Gender Identity Not on file Sexual Orientation Not on file documented as of this encounter Plan of Treatment Not on file documented as of this encounter Procedures Procedure Name Priority Date/Time Associated Diagnosis Comments PATHOLOGY REPORT 04/03/2023 12:0 0 AM EDT documented in this encounter Results * PATHOLOGY REPORT (04/03/2023 12:00 AM EDT) Cyrus Lewis MD PATHOLOGY/CYTOLOGY O RDERABLES documented in this encounter Visit Diagnoses Not on filedocumented in this encounter Care Teams Public Health Worker Relationship Specialty Start Date End Date Tiarra Nevarez APRN [address] [place] [address] PCP - General Family Medicine 03/28/23 documented as of this encounter
--- OUTSIDE RECORDS SUMMARY | 2024-10-15 17:59 | XMS_ITS ---
[facility] Name [facility] Organization Unknown Results Test Name/Text Value Interpretation Date Range Source COMPLEMENT, TOTAL 94 Normal [id number] [facility] PROT UR [facility] 11.5mg/dL Normal [id number] - 14 [facility] C4 SERPL [facility]NC 33mg/dL Normal [id number] 19 - 52 [facility] C3 SERPL [facility] 113mg/dL Normal [id number] 87 - 200 [facility] CREAT UR [facility] 93mg/dL Normal [id number] [facility] BUN SERPL [facility] 28mg/dL Above high normal [id number] 7 - 17 [facility] CREAT SERPL [facility] 1.9mg/dL Above high normal [id number] 0. 5 - 1 [facility] Glomerular filtration rate/1.73 sq M. predicted 30 Below low normal [id number] 60 - [facility] CREAT SERPL [facility] 1.9mg/dL Above high normal [id number] 0. 5 - 1 [facility] CALCIUM SERPL [facility] 9.6mg/dL Normal [id number] 8.4 - 10.2 [facility] SODIUM SERPL SCNC 140mmol/L Normal [id number] 135 - 145 [facility] ANION GAP SERPL [facility] 7mmol/L Normal [id number] 5 - 14 [facility] Glomerular filtration rate/1.73 sq M. predicted 30 Below low normal [id number] 60 - [facility] HCO3 SER SCNC 29mmol/L Normal [id number] 24 - 32 [facility] GLUCOSE SERPL [facility] 93mg/dL Normal [id number] 70 - 199 [facility] BUN SERPL [facility] 28mg/dL Above high normal [id number] 7 - 17 [facility] CHLORIDE SERPL SC[facility] 104mmol/L Normal [id number] 98 - 107 [facility] POTASSIUM SERPL SCNC 3.8mmol/L Normal [id number] 3.5 - 5.1 [facility] CRP SERPL [facility] 4mg/dL Above high normal [id number] - 0. 9 [facility] CALCIUM SERPL MCNC 9.6mg/dL Normal [id number] 8.4 - 10.2 [facility] ANION GAP SERPL SC[facility] 7mmol/L Normal [id number] 5 - 14 [facility] Glomerular filtration rate/1.73 sq M. predicted 30 Below low normal [id number] 60 - [facility] HCO3 SER SCNC 29mmol/L Normal 24 - 32 [facility] HS AST SERPL [facility]NC 14U/L Normal [id number] 5 - 40 [facility] GLUCOSE SERPL MCNC 93mg/dL Normal 70 - 199 [facility] BUN SERPL MCNC 28mg/dL Above high normal [id number] 7 - 17 [facility] CHLORIDE SERPL SCNC 104mmol/L Normal [id number] 98 - 107 [facility] ALBUMIN SERPL BCG [facility]NC 4.2g/dL Normal 3.5 - 5 [facility] ALP SERPL-CCNC 88U/L Normal 34 - 104 [facility] ALT SERPL [facility] 7U/L Normal 7 - 52 [facility] CREAT SERPL [facility] 1.9mg/dL Above high normal [id number] 0. 5 - 1 [facility] SODIUM SERPL SCNC 140mmol/L Normal [id number] 135 - 145 [facility] PROT SERPL [facility] 7.6g/dL Normal [id number] 6.4 - 8.5 [facility] BILIRUB SERPL MCNC 0.4mg/dL Normal [id number] 0.3 - 1 [facility] POTASSIUM SERPL SCNC 3.8mmol/L Normal [id number] 3.5 - 5.1 [facility] Clarity Ur Refract.auto CLEAR Normal [facility] Prot Ur Ql Strip.auto NEGATIVE Normal - [facility] Glucose Ur Ql Strip.auto NEGATIVE Normal - [facility] Nitrite Ur Ql Strip.auto NEGATIVE Normal - [facility] Hgb Ur Ql Strip.auto NEGATIVE Normal - [facility] Ketones Ur Ql Strip.auto NEGATIVE Normal - [facility] Leukocyte esterase Ur Ql Strip.auto NEGATIVE Normal - [facility] Sp Gr Ur Strip.auto 1.02 Normal 1.005 - 1.03 [facility] pH Ur Strip.auto 6.5 Normal 4.5 - 8 [facility] ESR Bld Qn Photometric 16mm/h Normal 0 - 20 [facility] Clarity Ur Refract.auto CLEAR Normal [facility] Color Ur Auto YELLOW Normal [facility] Prot Ur Ql Strip.auto NEGATIVE Normal - [facility] Glucose Ur Ql Strip.auto NEGATIVE Normal - [facility] Nitrite Ur Ql Strip.auto NEGATIVE Normal - [facility] Hgb Ur Ql Strip.auto NEGATIVE Normal - [facility] Ketones Ur Ql Strip.auto NEGATIVE Normal - [facility] Sp Gr Ur Strip.auto 1.02 Normal 1.005 - 1.03 [facility] pH Ur Strip.auto 6.5 Normal 4.5 - 8 [facility] SQUAMOUS NO./AREA URNS LPF 1/LPF Normal 0 - 5 [facility] RBC number/area UrnS Auto 1/HPF Normal 0 - 3 [facility] WBC number/area UrnS Auto 1/HPF Normal 0 - 5 [facility] PLATELET NO. BLD AUTO 269K/uL Normal 150 - 450 [facility] RBC NO. BLD AUTO 3.78M/uL Below low normal 4.2 - 5.4 [facility] NUCLEATED RBC 0% Normal 0 - 1 [facility] LYMPHOCYTES NO. BLD AUTO 1.2K/uL Normal 1 - 3.2 [facility] EOSINOPHIL NO. BLD AUTO 0.2K/uL Normal 0 - 0.5 [facility] MCH RBC QN AUTO 28pg Normal 25 - 33 [facility] MCHC RBC AUTO MCNC 33.1g/dL Normal 32 - 36 [facility] MONOCYTES NFR BLD AUTO 12% Normal 2 - 12 [facility] IMMATURE GRANULOCYTE, ABSOLUTE 0.01k/uL Normal - 0.1 [facility] LYMPHOCYTES NFR BLD AUTO 25.9% Normal 20 - 48 [facility] EOSINOPHIL NFR BLD AUTO 4.6% Normal 0 - 6 [facility] HGB BLD MCNC 10.6g/dL Below low normal 12.5 - 16 [facility] NEUTROPHILS NO. BLD AUTO 2.6K/uL Normal 1.8 - 7.8 [facility] WBC NO. BLD AUTO 4.6K/uL Normal 4 - 10.5 [facility] BASOPHILS NFR BLD AUTO 0.7% Normal 0 - 2 [facility] MONOCYTES NO. BLD AUTO 0.6K/uL Normal 0 - 0.8 [facility] MCV RBC AUTO 84.7fL Normal 78 - 100 [facility] NEUTR[facility] NFR BLD AUTO 56.6% Normal 44 - 74 [facility] IMMATURE GRANULOCYTE, PERCENT 0.2% Normal 0 - 1 [facility] BASOPHILS IN BLOOD BY AUTOMATED COUNT 0K/uL Normal 0 - 0.2 [facility] PMV BLD AUTO 8.8fL Normal 7.4 - 11.4 [facility] RDW RBC AUTO RTO 14.6% Normal 12.1 - 16.2 [facility] HCT VFR BLD AUTO 32% Below low normal 37 - 47 [facility] SPECIMEN SOURCE XXX URINE CLEAN CATCH Normal [facility] SPECIMEN SOURCE XXX URINE CLEAN CATCH Normal [facility] C4 SERPL MCNC 41mg/dL Normal 19 - 52 CTT HS C3 SERPL MCNC 132mg/dL Normal 87 - 200 C[facility] HS CRP SERPL MCNC 9.1mg/dL Above high normal [id number] - 0. 9 [facility] CALCIUM SERPL MCNC 9.9mg/dL Normal 8.4 - 10.2 [facility] ANION GAP SERPL SCNC 7mmol/L Normal [id number] 5 - 14 [facility] Glomerular filtration rate/1.73 sq M. predicted 34 Below low normal [id number] 60 - [facility] HCO3 SER SCNC 27mmol/L Normal [id number] 24 - 32 [facility] AST SERPL [facility] 13U/L Normal [id number] 5 - 40 [facility] GLUCOSE SERPL MCNC 89mg/dL Normal [id number] 70 - 199 [facility] BUN SERPL MCNC 21mg/dL Above high normal [id number] 7 - 17 [facility] CHLORIDE SERPL SCNC 102mmol/L Normal [id number] 98 - 107 [facility] ALBUMIN SERPL BCG MCNC 4.4g/dL Normal [id number] 3.5 - 5 [facility] ALP SERPL-CCNC 97U/L Normal [id number] 34 - 104 [facility] ALT SERPL [facility] 7U/L Normal [id number] 7 - 52 [facility] CREAT SERPL [facility] 1.7mg/dL Above high normal [id number] 0. 5 - 1 [facility] SODIUM SERPL SCNC 136mmol/L Normal [id number] 135 - 145 [facility] PROT SERPL MCNC 8.4g/dL Normal [id number] 6.4 - 8.5 [facility] BILIRUB SERPL MCNC 0.6mg/dL Normal [id number] 0.3 - 1 [facility] POTASSIUM SERPL SCNC 3.7mmol/L Normal [id number] 3.5 - 5.1 [facility] ESR Bld Qn Photometric 24mm/h Above high normal [id number] 0 - 20 [facility] Clarity Ur Refract.auto CLEAR Normal [id number] [facility] Color Ur Auto YELLOW Normal [id number] [facility] Glucose Ur Ql Strip.auto NEGATIVE Normal [id number] - [facility] Nitrite Ur Ql Strip.auto NEGATIVE Normal [id number] - [facility] Hgb Ur Ql Strip.auto NEGATIVE Normal [id number] - [facility] Ketones Ur Ql Strip.auto NEGATIVE Normal [id number] - [facility] Prot Ur Ql Strip.auto 30mg/dL Abnormal [id number] - [facility] Sp Gr Ur Strip.auto 1.02 Normal [id number] 1.005 - 1.03 [facility] pH Ur Strip.auto 5.5 Normal [id number] 4.5 - 8 [facility] Bacteria Ur Ql Auto PRESENT Abnormal [id number] - [facility] SQUAMOUS NO./AREA URNS LPF 6/LPF Above high normal [id number] 0 - 5 [facility] RBC number/area UrnS Auto 0/HPF Normal 0 - 3 [facility] WBC number/area UrnS Auto 2/HPF Normal [id number] 0 - 5 [facility] PLATELET NO. BLD AUTO 346K/uL Normal [id number] 150 - 450 [facility] RBC NO. BLD AUTO 4.03M/uL Below low normal 4.2 - 5.4 [facility] NUCLEATED RBC 0% Normal 0 - 1 [facility] LYMPHOCYTES NO. BLD AUTO 1.1K/uL Normal [id number] 1 - 3.2 [facility] EOSINOPHIL NO. BLD AUTO 0.3K/uL Normal [id number] 0 - 0.5 [facility] MCH RBC QN AUTO 27.5pg Normal [id number] 25 - 33 [facility] MCHC RBC AUTO MCNC 32.7g/dL Normal [id number] 32 - 36 [facility] MONOCYTES NFR BLD AUTO 11.2% Normal [id number] 2 - 12 [facility] IMMATURE GRANULOCYTE, ABSOLUTE 0.04k/uL Normal [id number] - 0.1 [facility] LYMPHOCYTES NFR BLD AUTO 15.1% Below low normal [id number] 20 - 48 [facility] EOSINOPHIL NFR BLD AUTO 4% Normal [id number] 0 - 6 [facility] HGB BLD MCNC 11.1g/dL Below low normal [id number] 12.5 - 16 [facility] NEUTROPHILS NO. BLD AUTO 5.1K/uL Normal [id number] 1.8 - 7.8 [facility] WBC NO. BLD AUTO 7.4K/uL Normal [id number] 4 - 10.5 [facility] BASOPHILS NFR BLD AUTO 0.7% Normal [id number] 0 - 2 [facility] MONOCYTES NO. BLD AUTO 0.8K/uL Normal 0 - 0.8 [facility] MCV RBC AUTO 84.1fL Normal [id number] 78 - 100 [facility] NEUTROPHILS NFR BLD AUTO 68.5% Normal [id number] 44 - 74 [facility] IMMATURE GRANULOCYTE, PERCENT 0.5% Normal 0 - 1 [facility] BASOPHILS IN BLOOD BY AUTOMATED COUNT 0.1K/uL Normal [id number] 0 - 0.2 [facility] PMV BLD AUTO 8.5fL Normal [id number] 7.4 - 11.4 [facility] RDW RBC AUTO RTO 13.8% Normal 12.1 - 16.2 [facility] HCT VFR BLD AUTO 33.9% Below low normal [id number] 37 - 47 [facility] SPECIMEN SOURCE XXX URINE CLEAN CATCH Normal [id number] [facility] COMPLEMENT, TOTAL 70 Normal [id number] [facility] Clarity Ur Refract.auto CLEAR Normal [id number] [facility] Bacteria Ur Ql Auto PRESENT Abnormal [id number] - [facility] Color Ur Auto YELLOW Normal [id number] [facility] Prot Ur Ql Strip.auto NEGATIVE Normal [id number] - [facility] Glucose Ur Ql Strip.auto NEGATIVE Normal [id number] - [facility] Nitrite Ur Ql Strip.auto NEGATIVE Normal [id number] - [facility] Hgb Ur Ql Strip.auto NEGATIVE Normal [id number] - [facility] Ketones Ur Ql Strip.auto NEGATIVE Normal [id number] - [facility] Leukocyte esterase Ur Ql Strip.auto TRACE Abnormal [id number] - [facility] Sp Gr Ur Strip.auto 1.017 Normal [id number] 1.005 - 1.03 [facility] RBC number/area UrnS Auto 1/HPF Normal [id number] 0 - 3 [facility] Squamous number/area UrnS Auto 39/LFP Above high normal [id number] 0 - 5 [facility] pH Ur Strip.auto 6 Normal [id number] 4.5 - 8 [facility] WBC number/area UrnS Auto 1/HPF Normal [id number] 0 - 5 [facility] C4 SERPL MCNC 37mg/dL Normal [id number] 19 - 52 [facility] C3 SERPL MCNC 118mg/dL Normal [id number] 87 - 200 [facility] CRP SERPL MCNC 2.1mg/dL Above high normal [id number] - 0. 9 [facility] CALCIUM SERPL MCNC 9.4mg/dL Normal [id number] 8.4 - 10.2 [facility] ANION GAP SERPL SCNC 6mmol/L Normal [id number] 5 - 14 [facility] Glomerular filtration rate/1.73 sq M. predicted 40 Below low normal [id number] 60 - [facility] HCO3 SER SCNC 29mmol/L Normal [id number] 24 - 32 [facility] AST SERPL CCNC 14U/L Normal [id number] 5 - 40 [facility] GLUCOSE SERPL MCNC 92mg/dL Normal [id number] 70 - 199 [facility] BUN SERPL MCNC 20mg/dL Above high normal [id number] 7 - 17 [facility] CHLORIDE SERPL SCNC 102mmol/L Normal [id number] 98 - 107 [facility] ALBUMIN SERPL BCG MCNC 4.3g/dL Normal [id number] 3.5 - 5 [facility] ALP SERPL-CCNC 96U/L Normal [id number] 34 - 104 [facility] ALT SERPL [facility] 8U/L Normal [id number] 7 - 52 [facility] CREAT SERPL MCNC 1.5mg/dL Above high normal [id number] 0. 5 - 1 [facility] SODIUM SERPL SCNC 137mmol/L Normal [id number] 135 - 145 [facility] PROT SERPL MCNC 7.3g/dL Normal [id number] 6.4 - 8.5 [facility] BILIRUB SERPL MCNC 0.4mg/dL Normal [id number] 0.3 - 1 [facility] POTASSIUM SERPL SCNC 3.8mmol/L Normal [id number] 3.5 - 5.1 [facility] ESR Bld Qn Photometric 11mm/h Normal [id number] 0 - 20 [facility] PLATELET NO. BLD AUTO 354K/uL Normal [id number] 150 - 450 [facility] RBC NO. BLD AUTO 3.89M/uL Below low normal [id number] 4.2 - 5.4 [facility] NUCLEATED RBC 0% Normal [id number] 0 - 1 [facility] LYMPHOCYTES NO. BLD AUTO 1.6K/uL Normal [id number] 1 - 3.2 [facility] EOSINOPHIL NO. BLD AUTO 0.3K/uL Normal [id number] 0 - 0.5 [facility] MCH RBC QN AUTO 27.5pg Normal [id number] 25 - 33 [facility] MCHC RBC AUTO MCNC 31.8g/dL Below low normal [id number] 32 - 36 [facility] MONOCYTES NFR BLD AUTO 12.5% Above high normal [id number] 2 - 12 [facility] IMMATURE GRANULOCYTE, ABSOLUTE 0.02k/uL Normal [id number] - 0.1 [facility] LYMPHOCYTES NFR BLD AUTO 32.7% Normal [id number] 20 - 48 [facility] EOSINOPHIL NFR BLD AUTO 5.8% Normal [id number] 0 - 6 [facility] HGB BLD MCNC 10.7g/dL Below low normal [id number] 12.5 - 16 [facility] NEUTROPHILS NO. BLD AUTO 2.3K/uL Normal [id number] 1.8 - 7.8 [facility] WBC NO. BLD AUTO 4.8K/uL Normal [id number] 4 - 10.5 [facility] BASOPHILS NFR BLD AUTO 0.8% Normal [id number] 0 - 2 [facility] MONOCYTES NO. BLD AUTO 0.6K/uL Normal [id number] 0 - 0.8 [facility] MCV RBC AUTO 86.6fL Normal [id number] 78 - 100 [facility] NE[facility] NFR BLD AUTO 47.8% Normal [id number] 44 - 74 [facility] IMMATURE GRANULOCYTE, PERCENT 0.4% Normal [id number] 0 - 1 [facility] BASOPHILS IN BLOOD BY AUTOMATED COUNT 0K/uL Normal [id number] 0 - 0.2 [facility] PMV BLD AUTO 8.8fL Normal [id number] 7.4 - 11.4 [facility] RDW RBC AUTO RTO 14.5% Normal [id number] 12.1 - 16.2 [facility] HCT VFR BLD AUTO 33.7% Below low normal [id number] 37 - 47 [facility] SPECIMEN SOURCE XXX URINE CLEAN CATCH Normal [id number] [facility] Clarity Ur Refract.auto CLEAR Normal [id number] [facility] Prot Ur Ql Strip.auto NEGATIVE Normal [id number] - [facility] Glucose Ur Ql Strip.auto NEGATIVE Normal [id number] - [facility] Nitrite Ur Ql Strip.auto NEGATIVE Normal [id number] - [facility] Sp Gr Ur Strip.auto <1.005 Below low normal [id number] 1.005 - 1.03 [facility] Hgb Ur Ql Strip.auto NEGATIVE Normal [id number] - [facility] Ketones Ur Ql Strip.auto NEGATIVE Normal [id number] - [facility] Leukocyte esterase Ur Ql Strip.auto TRACE Abnormal [id number] - [facility] pH Ur Strip.auto 7 Normal [id number] 4.5 - 8 [facility] Troponin I SerPl HS-mCnc 4ng/L Normal [id number] 0 - 14 [facility] XXX-Imp Cepheid GeneXpert (RT-PCR) [facility] Normal [id number] [facility] FLUBV RNA Nph Ql MABLE+non-probe NEGATIVE Normal [id number] [facility] FLUAV RNA Nph Ql MABLE+non-probe NEGATIVE Normal [id number] [facility] Troponin I SerPl HS-mCnc 5ng/L Normal [id number] 0 - 14 [facility] AMYLASE SERPL CCNC 60U/L Normal [id number] 29 - 103 [facility] BILIRUB SERPL MCNC 0.5mg/dL Normal [id number] 0.3 - 1 [facility] BILIRUB DIRECT SERPL MCNC 0.1mg/dL Normal [id number] 0 - 0.2 [facility] LDH SERPL L TO P CCNC 138U/L Normal [id number] 125 - 220 [facility] AST SERPL [facility] 14U/L Normal [id number] 5 - 40 [facility] ALP SERPL-CCNC 76U/L Normal [id number] 34 - 104 [facility] ALT SERPL CC[facility] 9U/L Normal [id number] 7 - 52 [facility] LIPASE SERPL CCNC 30U/L Normal [id number] 11 - 82 [facility] CREAT SERPL MCNC 1.3mg/dL Above high normal [id number] 0. 5 - 1 [facility] CALCIUM SERPL MCNC 9.9mg/dL Normal [id number] 8.4 - 10.2 [facility] SODIUM SERPL SCNC 138mmol/L Normal [id number] 135 - 145 [facility] ANION GAP SERPL SCNC 7mmol/L Normal [id number] 5 - 14 [facility] Glomerular filtration rate/1.73 sq M. predicted 47 Below low normal [id number] 60 - [facility] HCO3 SER SCNC 27mmol/L Normal [id number] 24 - 32 [facility] GLUCOSE SERPL MCNC 85mg/dL Normal [id number] 70 - 199 [facility] BUN SERPL MCNC 14mg/dL Normal [id number] 7 - 17 [facility] CHLORIDE SERPL SCNC 104mmol/L Normal [id number] 98 - 107 [facility] POTASSIUM SERPL SCNC 3.9mmol/L Normal [id number] 3.5 - 5.1 [facility] PLATELET NO. BLD AUTO 297K/uL Normal [id number] 150 - 450 [facility] RBC NO. BLD AUTO 4.53M/uL Normal [id number] 4.2 - 5.4 [facility] NUCLEATED RBC 0% Normal [id number] 0 - 1 [facility] LYMPHOCYTES NO. BLD AUTO 1.1K/uL Normal [id number] 1 - 3.2 [facility] EOSINOPHIL NO. BLD AUTO 0.2K/uL Normal [id number] 0 - 0.5 [facility] MCH RBC QN AUTO 28.7pg Normal [id number] 25 - 33 [facility] MCHC RBC AUTO MCNC 33.2g/dL Normal [id number] 32 - 36 [facility] MONOCYTES NFR BLD AUTO 10.6% Normal [id number] 2 - 12 [facility] IMMATURE GRANULOCYTE, ABSOLUTE 0.01k/uL Normal [id number] - 0.1 [facility] LYMPHOCYTES NFR BLD AUTO 30.5% Normal [id number] 20 - 48 [facility] EOSINOPHIL NFR BLD AUTO 5.3% Normal [id number] 0 - 6 [facility] HGB BLD MCNC 13g/dL Normal [id number] 12.5 - 16 [facility] NEUTROPHILS NO. BLD AUTO 1.9K/uL Normal [id number] 1.8 - 7.8 [facility] WBC NO. BLD AUTO 3.6K/uL Below low normal [id number] 4 - 10.5 [facility] BASOPHILS NFR BLD AUTO 0.6% Normal 0 - 2 [facility] MONOCYTES NO. BLD AUTO 0.4K/uL Normal 0 - 0.8 [facility] MCV RBC AUTO 86.3fL Normal 78 - 100 [facility] NEUTROPHILS NFR BLD AUTO 52.7% Normal 44 - 74 [facility] IMMATURE GRANULOCYTE, PERCENT 0.3% Normal 0 - 1 [facility] BASOPHILS IN BLOOD BY AUTOMATED COUNT 0K/uL Normal 0 - 0.2 [facility] PMV BLD AUTO 8.9fL Normal 7.4 - 11.4 [facility] HS RDW RBC AUTO RTO 13.4% Normal 12.1 - 16.2 [facility] HCT VFR BLD AUTO 39.1% Normal 37 - 47 [facility] SPECIMEN SOURCE XXX URINE CLEAN CATCH Normal [id number] [facility] SPECIMEN SOURCE XXX NASOPHARYNGEAL Normal [id number] [facility] History of Medication Use Medication Directions Dispensed Refills Start Date End Date Status certolizumab pegol (CIMZIA) 2 X 200 MG KIT injection INJECT 400MG (2 SYRINGES) SUBCUTANEOUSLY EVERY 4 WEEKS 4 active hydroCHLOROthiazide (HYDRODIURIL) 12.5 MG tablet Take 12.5 mg by mouth as needed. active amLODIPine (NORVASC) tablet 2.5 mg Take 1 tablet (2.5 mg total) by mouth daily. 3 active certolizumab pegol (Cimzia) 2 X 200 MG KIT injection Inject 400 mg under the skin every 28 days. 3 active ergocalciferol (VITAMIN D2) capsule 33042 units Take 1 capsule (50,000 Units total) by mouth once a week. 1 active hydroxychloroquine (PLAQUENIL) 200 MG tablet Take by mouth every morning with breakfast. 3 active Problems Problem Status Onset Date Problem Type Date of Resoluti on Source Lung nodule active EncounterDiagnosisAct [facility] Screen for colon cancer active EncounterDiagnosisAct [facility]
--- OUTSIDE RECORDS SUMMARY | 2024-10-15 17:59 | XMS_ITS | Clinical Summary ---
Author Organization [facility] Address [address] [place] [address] Care Team Providers Care Orchid Hand Name Role Phone Tiarra Nevarez Jorgito ANCELMO Primary Care Provide r Allergies No known active allergies Medications Medication Sig Dispensed Refills Start Date End Date Status Humira Pen 40 MG/0.4ML pen-injector kit CITRATE FREE Inject 40 mg under the skin every 14 days (2 weeks). 01/11/2023 Active hydroxychloroquine (PLAQUENIL) 200 MG tablet Take by mouth every morning with breakfast. 12/21/2022 Active hydroCHLOROthiazide (HYDRODIURIL) 12.5 MG tablet Take 12.5 mg by mouth as needed. Active Family History Medical History Relation Name Comments Colon cancer Nephew Relation Name Status Comments Nephew Social History Tobacco Use Types Packs/Day Years Used Date Smoking Tobacco: Some Days Cigarettes Smokeless Tobacco: Never Tobacco Cessation:Ready to Q uit: Not Asked; Counseling Given: Not Answered Comments:Cigarette once in a while Alcohol Use Standard Drinks/Week Comments Not Currently 0 (1 standard drink = 0.6 oz pur e alcohol) Sex and Gender Information Value Date Recorded Sex Assigned at Not on file Gender Identity Not on file Sexual Orientation Not on file Last Filed Vital Signs Vital Sign Reading Time Taken Comments Blood Pressure 161/77 04/03/2023 10:59 AM EDT Pulse 65 04/03/2023 10:59 AM EDT Temperature 36.7 ??C (98.1 ??F) 04/03/2023 10:12 AM E DT Respiratory Rate 16 04/03/2023 10:59 AM EDT Oxygen Saturation 99% 04/03/2023 10:59 AM EDT Inhaled Oxygen Concentration - - Weight 74.8 kg (165 lb) 03/28/2023 12:20 PM EDT Height 167.6 cm (5' 6 ) 03/28/2023 12:20 PM EDT Body Mass Index 26.63 03/28/2023 12:20 PM EDT Plan of Treatment Health Maintenance Due Date Last Done Comments Hepatitis C Virus Screening 1964 COVID-19 Vaccine (#1) 1969 Quantiferon Gold TB 1974 HIV Screening 1977 DTaP/Tdap/Td Vaccines (1 - Tdap) 1983 Pneumococcal Vaccines 50+ (1 of 2 - PCV) 1983 Zoster (Shingles) Vaccine (1 of 2) 1983 Pap Smear (Ages 21-65) 1985 Mammogram 2004 Influenza Vaccine 03/20/2024 RSV Vaccine 60 years and old er and Patients (1 - Risk 60-74 years 1-dose series) 2024 Colonoscopy 04/03/2033 04/03/2023 Hepatitis B Vaccines Aged Out No long er eligible based on patient's age to complete this topic Care Teams Orchid Hand Relationship Specialty Start Date End Date Tiarra Nevarez APRN [address] [facility] [address] [place] [address] PCP - General Family Medicine 03/28/23
--- OUTSIDE RECORDS SUMMARY | 2024-10-15 17:59 | XMS_ITS | Encounter Summary ---
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 hand use:Light tobacco smoker Comments Unknown Sex and Gender Information Value Date Recorded Sex Assigned at Not on file Legal Sex Female 8:13 PM EDT Gender Identity Not on file Sexual Orientation Not on file documented as of this encounter Plan of Treatment Not on file documented as of this encounter Visit Diagnoses Not on filedocumented in this encounter Care Teams Court Crier Relationship Specialty Start Date End Date Veena Arellano MD [facility] Family Medicine [address] [place] [id number] PCP - General 03/26/23 Veena Arellano MD [facility] Family Medicine [address] [place] [id number] PCP - Backup PCP Family Medicine 09/20/23 documented as of this encounter
== END 2024-10-15 15:04 | disposition home or self-care (01) ==
PROVIDERS: Visit Provider Internal Medicine Hypertension Specialist
DX: N18.9 Chronic kidney disease, unspecified (principal)
CPT/HCPCS: 99214

== ENCOUNTER 2024-12-10 15:40 | Outpatient (AMB) | payer BC, SELFPAY ==
[2024-12-10 15:40] VITALS: BP 114/60; PULSE 74; O2SAT 100; BMI 24.9
--- NOTE | 2024-12-10 15:40 | HO.NEPHOV_ITS ---
Vital Signs 12/10/24 15:40 Height 5 ft 6 in Weight 154 lb BMI 24.9 BP 114/60 Blood Pressure Location Rt brachial Position Sitting Pulse 74 Pulse Source Pulse Oximeter Pulse Oximetry (%) 100 Oxygen Delivery Method Room Air Intake Visit Reasons: follow up CKD/ Conf Allergies No Known Allergies Allergy (Verified 12/10/24 15:42) Medication List - Last Reconciled 12/10/24 by Eleuterio Jefferson MD amlodipine 5 mg PO DAILY certolizumab pegol (Cimzia) mg subcut hydroxychloroquine 200 mg PO BID HPI Comments Details: Cristiana 57 woman with a history of psoriatic arthritis, uveitis/MCTD/SLE. She was diagnosed with lupus more than 30 years ago. She was on Humira 40 mg weekly 2 doses and then every other week. She was referred back in 05/09/2022 for elevated serum creatinine 1.4. Since then creatinine has been between 1.1.2 mg/dL. In the past she had a trial of methotrexate which was discontinued due to hair loss. Recently she had a CT scan in 07/09/2023 which showed hilar adenopathy. She was seen by senior internal auditor and a CT scan with IV contrast has been recommended. 10/15/24 Feels abdominal bloating; BM every 3 days. Takes Miralax Recent serum creatinine was 2.2 , up from 1.7 mg/dL. She had resp infection last month She was no specific complaints. Currently on Certolizimab 12/10/2024. Overall she is feeling fine. Denies any specific complaints today. Accompanied by her . [facility] Medical History Uveitis Psoriasis Mixed collagen vascular disease Hypertension Surgical History History of cholecystectomy Family History Mother Hypertension Diabetes Cancer Sister Diabetes Hypertension Brother Hypertension Diabetes Maternal Aunt Diabetes Cancer Social History Alcohol intake: current Comment: Rare Patient Tobacco Use Status: Current someday Tobacco user Physical Exam Vital Signs: Last Vital Signs Pulse 74 12/10/24 15:40 BP 114/60 12/10/24 15:40 Pulse Ox 100 12/10/24 15:40 Oxygen Delivery Method Room Air 12/10/24 15:40 BMI result Body Mass Index 24.9 Const General: comfortable; No acute distress Orientation/consciousness: patient oriented x3 Eyes General: appearance normal, both eyes and all related structures Visual Salomon: normal visual salomon by confrontation Neck Neck: Yes supple and Yes no JVD Resp Effort & Inspection: normal respiratory effort and respiratory effort not decreased Auscultation: rhonchi Cardio Palpation: no palpable S3 and no palpable S4 Heart sounds: no rubs GI Inspection: Yes normal to inspection Palpation (GI): Soft to palpation Percussion: Yes normal to percussion Auscultation: normal bowel sounds General: Yes no CVA tenderness Back/Spine/Pelvis Back: no CVA tenderness Skin General skin exam: no petechiae and no purpura Neuro General: patient oriented x3 and no focal motor deficits Extrem General: No clubbing and No edema Results Reviewed Results Reviewed: cr 2.27 Cr up to 2.64 Nephrology Results: No Data to Display Assessment & Plan Assessment & Plan (1) CKD (chronic kidney disease): Code(s): N18.9 - Chronic kidney disease, unspecified Category: Medical Plan Rolanda has chronic kidney disease with a baseline creatinine is around 1.4 mg/dL in the setting of connective tissue disease overlap syndrome/lupus/M CTD. Recently she was found to have mediastinal lymphadenopathy. Creatinine is bumped to 1.9. This may be due to hypoperfusion. Clinically she appears euvolemic no edema. Stopped Lasix and will repeat labs She has at a risk for contrast induced nephropathy. If possible we should avoid IV contrast. However if the repeat serum creatinine is less than 1.5, we could consider CT scan with IV contrast. Other option would be to try alternate imaging techniques to evaluate the adenopathy without IV contrast. BP better controlled Keep Amlodipine 5 mg QD stay on low salt diet. 10/15/24 Worsening creatinine Is this related to Cimzia? There has been reported cases of certolizumab pegol induced renal sarcoidosis an d minimal chain disease. Repeat renal panel today along with urine studies and serologies If renal fx worsens , will obtain a kidney biopsy 12/10/2022. Worsening renal function most likely due to Cimzia. We discussed the pros and cons. Discussed importance of obtaining a kidney biopsy for definite diagnosis she is agreeable. Ordered kidney biopsy. She will check with the er tech to switch to a different agent. Orders: Orders CT biopsy renal RT Today N18.9 - Chronic kidney disease, unspecified Prothrombin Time INR Today N18.9 - Chronic kidney disease, unspecified Partial Thromboplastin Time Today N18.9 - Chronic kidney disease, unspecified Complete Blood Count Auto Diff Today N18.9 - Chronic kidney disease, unspecified Coding Level of Care Code Est Pt Level 4 (02311) Diagnoses CKD (chronic kidney disease) N18.9
--- OUTSIDE RECORDS SUMMARY | 2024-12-10 18:17 | XMS_ITS | Clinical Summary ---
Author Organization [facility] Address [address] [place] [address] Phone Care Team Providers Care Retort Engineer Name Role Phone Roque, Jorge Luisclara MADAY Primary Care Provider [phone] Medical History Medical History Date Comments Arthritis DX:Arthritis;COM MENT:RA Hypertension DX:Hypertension Uveitis DX:Uveitis Lupus DX:Lupus Psoriatic arthritis ([facility]/HCC V24, [facility] V28) DX:Psoriatic arthritis ([facility]) Social History Tobacco Use Types Packs/Day Years [...] (4 - season) 2024 08/26/2021, 12/23/2020, 11/16/2020 DTaP,Tdap,and Td Vaccines (2 - Td or Tdap) 11/04/2024 11/04/2014 Influenza Vaccine (Season Ended) 2025 Hypertension/CHF/CAD Annual BMP Blood Test 11/24/2025 11/24/2024, 09/15/2024, 09/15/2024, Additional history exists RSV Immunization Adult Patients (1 - 1-dose 75+ series) 2039 Pneumococcal [...] age to complete this topic Meningococcal B Vaccine Aged Out No l onger eligible based on patient's age to complete this topic RSV Immunization Patients Under 20 months Aged Out No longer eligible based on patient's age to complete this topic Varicella Vaccines Aged Out No longer eligible based on patient's age to complete this topic Procedures Procedure Name Priority Date/Time Associated Diagnosis Comments URINALYSIS WITH REFLEX MICROSCOPIC AND CULTURE Routine 11/24/2024 10:01 AM EDT Chronic kidney disease, unspecified URINALYSIS WITH REFLEX MICROSCOPIC AND CULTURE Routine 11/24/2024 10:01 AM EDT Chronic kidney disease, unspecified CREATININE, URINE, RANDOM Routine 11/24/2024 10:01 AM EDT Chronic kidney disease, unspecified PROTEIN ELECTROPHORESIS, SERUM Routine 11/24/2024 10:01 AM EDT Chronic kidney disease, unspecified C3 COMPLEMENT Routine 11/24/2024 10:01 AM EDT Chronic kidney disease, unspecified COMPLETE BLOOD COUNT Routine 11/24/2024 10:01 AM EDT Chronic kidney disease, unspecified C4 COMPLEMENT Routine 11/24/2024 10:01 AM EDT Chronic kidney disease, unspecified COMPREHENSIVE METABOLIC PANEL Routine 11/24/2024 10:01 AM EDT Chronic kidney disease, unspecified ANTI-NEUTROPHILIC CYTOPLASMIC ANTIBODY Routine 11/24/2024 10:01 AM EDT Chronic kidney disease, unspecified GLOMERULAR BASEMENT MEMBRANE ANTIBODIES Routine 11/24/2024 10:01 AM EDT Chronic kidney disease, unspecified CBC WITH AUTO DIFFERENTIAL Routine 09/15/2024 3:41 PM EST Need for prophylactic chemotherapy Nonspecific abnormal results of kidney function study Mixed connective tissue disease ([facility] V24) URINALYSIS WITH MICROSCOPIC REFLEX CULTURE Routine 09/15/2024 3:41 PM EST Need for prophylactic chemotherapy Nonspecific abnormal results of kidney function study Mixed connective tissue disease (CMS/HCC V24) COMPLEMENT, TOTAL Routine 09/15/2024 3:4 1 PM EST Need for prophylactic chemotherapy Nonspecific abnormal results of kidney function study Mixed connective tissue disease (CMS/HCC V24) C4 COMPLEMENT Routine 09/15/2024 3:41 PM EST Need for prophylactic chemotherapy Nonspecific abnormal results of kidney function study Mixed connective tissue disease (CMS/HCC V24) C3 COMPLEMENT Routine 09/15/2024 3:41 PM EST Need for prophylactic chemotherapy Nonspecific abnormal results of kidney function study Mixed connective tissue disease (CMS/HCC V24) SEDIMENTATION RATE Routine 09/15/2024 3: 41 PM EST Need for prophylactic chemotherapy Nonspecific abnormal results of kidney function study Mixed connective tissue disease (CMS/HCC V24) C-REACTIVE PROTEIN Routine 09/15/2024 3: 41 PM EST Need for prophylactic chemotherapy Nonspecific abnormal results of kidney function study Mixed connective tissue disease (CMS/HCC V24) COMPREHENSIVE METABOLIC PANEL Routine 09/15/2024 3:41 PM EST Need for prophylactic chemotherapy Nonspecific abnormal results of kidney function study Mixed connective tissue disease (CMS/HCC V24) CBC AND DIFFERENTIAL Routine 09/15/2024 3:41 PM EST Need for prophylactic chemotherapy Nonspecific abnormal results of kidney function study Mixed connective tissue disease (CMS/HCC V24) URINALYSIS WITH MICROSCOPIC REFLEX CULTURE Routine 09/15/2024 3:41 PM EST Need for prophylactic chemotherapy Nonspecific abnormal results of kidney function study Mixed connective tissue disease (CMS/HCC V24) URINALYSIS WITH MICROSCOPIC REFLEX CULTURE Routine 09/15/2024 3:40 PM EST Chronic kidney disease, unspecified BASIC METABOLIC PANEL Routine 09/15/2024 3:40 PM EST Chronic kidney disease, unspecified URINALYSIS WITH MICROSCOPIC REFLEX CULTURE Routine 09/15/2024 3:40 PM EST Chronic kidney disease, unspecified PROTEIN, URINE, RANDOM Routine 09/15/2024 3:40 PM EST Chronic kidney disease, unspecified from Last 3 Months Results * (ABNORMAL) Urinalysis with reflex microscopic and culture (11/24/2024 10:01 AM EDT) Color, Urine Yellow Colorless, Yellow LAB URINALYSIS - AUTOMATED METHOD 11/24/2024 10:18 AM [facility] Clarity, Urine Clear Clear LAB URINALYSIS - AUTOMATED METHOD 11/24/2024 10:18 AM [facility] Specific [place] Urine 1.020 1.005 - 1.030 LAB URINALYSIS - AUTOMATED METHOD 11/24/2024 10:18 AM [facility] pH, Urine 5.5 5.0 - 8.0 pH LAB URINALYSIS - AUTOMATED METHOD 11/24/2024 10:18 AM [facility] Leukocytes, Urine Negative Negative WBCs/mcL LAB URINALYSIS - AUTOMATED METHOD 11/24/2024 10:18 AM [facility] Nitrite, Urine Negative Negative LAB URINALYSIS - AUTOMATED METHOD 11/24/2024 10:18 AM [facility] Protein, Urine 30(A) Negative mg/dL LAB URINALYSIS - AUTOMATED METHOD 11/24/2024 10:18 AM [facility] Glucose, Urine Negative Negative mg/dL LAB URINALYSIS - AUTOMATED METHOD 11/24/2024 10:18 AM [facility] Ketones, Urine Negative Negative mg/dL LAB URINALYSIS - AUTOMATED METHOD 11/24/2024 10:18 AM [facility] Blood, Urine Negative Negative mg/dL LAB URINALYSIS - AUTOMATED METHOD 11/24/2024 10:18 AM [facility] Urine Urine specimen obtained by clean catch procedure / Unknown Non-blood Collection / Unknown 11/24/2024 10:01 AM EDT 11/24/2024 10:08 AM EDT us Eleuterio Jefferson MD LAB URINE ORDERABL ES Final Result [facility] [address] [place] [address], [place] [phone] * Glomerular basement membrane antibodies (11/24/2024 10:01 AM EDT) Glomerular Basement Membrane <1.5 <7.0 U/mL 11/27/2024 2:40 PM EDT [facility] Comment: INTERPRETATION: Negative Test performed at [facility], [address] , [place], [place] ??[address] ? [phone] Frances Abdalla MD, PhD - Drainage Engineer Blood Venous blood specimen / Unknown Venipuncture / Unknown 11/24/2024 10:01 AM EDT 11/24/2024 10:07 AM EDT us Eleuterio Jefferson MD LAB BLOOD ORDERABL ES Final Result [facility] [address] [place] [address] * Creatinine, urine, random (11/24/2024 10:01 AM EDT) Creatinine, Urine 138.0 mg/dL LAB CHEMISTRY METHOD 11/24/2024 10:31 AM EDT [facility] Urine Urine specimen obtained by clean catch procedure / Unknown Non-blood Collection / Unknown 11/24/2024 10:01 AM EDT 11/24/2024 10:08 AM EDT Narrative [facility] - 11/24/2024 10:31 AM EDT No reference range has been established for this assay (test result). us Eleuterio Jefferson MD LAB URINE ORDERABL ES Final Result [facility] [address] [place] [address], [place] [phone] * Anti-neutrophilic cytoplasmic antibody (11/24/2024 10:01 AM EDT) P-ANCA <1:20 <1:20 Titer 11/27/2024 2:36 PM EDT [facility] C-ANCA <1:20 <1:20 Titer 11/27/2024 2:36 PM EDT [facility] Comment: Test performed at [facility], [address] , [place], [place] ??[address] ? [phone] Frances Abdalla MD, PhD - Drainage Engineer Blood Venous blood specimen / Unknown Venipuncture / Unknown 11/24/2024 10:01 AM EDT 11/24/2024 10:07 AM EDT Eleuterio Jefferson MD LAB BLOOD ORDERABL ES Final Result [facility] [address] [place] [address] * (ABNORMAL) Complete blood count (11/24/2024 10:01 AM EDT) [facility] WBC 5.2 4.0 - 10.5 K/mcL LAB HEMETOLOGY [facility] RBC 3.81(L) 4.20 - 5.40 M/mcL LAB HEMETOLOGY METHOD 11/24/2024 10:10 AM EDT [facility] Hemoglobin 10.6(L) 12.5 - 16.0 g/dL LAB HEMETOLOGY METHOD 11/24/2024 10:10 AM EDT [facility] Hematocrit 32.6(L) 37.0 - 47.0 % LAB HEMETOLOGY METHOD 11/24/2024 10:[facility] MCV 85.6 78.0 - 100.0 FL LAB HEMETOLOGY METHOD 11/24/2024 10:10 AM EDT [facility] MCH 27.8 25.0 - 33.0 pcg LAB HEMETOLOGY METHOD 11/24/2024 10:10 AM EDT [facility] MCHC 32.5 32.0 - 36.0 g/dL LAB HEMETOLOGY METHOD 11/24/2024 10:10 AM EDT [facility] RDW 14.1 12.1 - 16.2 % LAB HEMETOLOGY METHOD 11/24/2024 10:10 AM EDT [facility] Platelets 348 150 - 450 K/mcL LAB HEMETOLOGY METHOD 11/24/2024 10:10 AM EDT [facility] MPV 8.0 7.4 - 11.4 FL LAB HEMETOLOGY METHOD 11/24/2024 10:10 AM EDT [facility] Blood Venous blood specimen / Unknown Venipuncture / Unknown 11/24/2024 10:01 AM EDT 11/24/2024 10:07 AM EDT us Eleuterio Jefferson MD LAB BLOOD ORDERABL ES Final Result [facility] [address] [place] [address], [place] [phone] * C3 complement (11/24/2024 10:01 AM EDT) Only the most recent of2 resultswithin the time period is included. C3 Complement 119 87 - 200 mg/dL LAB CHEMISTRY METHOD 11/24/2024 3:54 PM EDT [facility] Blood Venous blood specimen / Unknown Venipuncture / Unknown 11/24/2024 10:01 AM EDT 11/24/2024 10:07 AM EDT us Eleuterio Jefferson MD LAB BLOOD ORDERABL ES Final Result [facility] [address] [place] [address], [place] [phone] * C4 complement (11/24/2024 10:01 AM EDT) Only the most recent of2 resultswithin the time period is included. C4 Complement 41 19 - 52 mg/dL LAB CHEMISTRY METHOD 11/24/2024 4:02 PM EDT [facility] Blood Venous blood specimen / Unknown Venipuncture / Unknown 11/24/2024 10:01 AM EDT 11/24/2024 10:07 AM EDT Eleuterio Jefferson MD LAB BLOOD ORDERABL ES Final Result Performing Organization Address [facility] Co de Phone Number [facility] [address] [place] [address], [place] [phone] * (ABNORMAL) Protein electrophoresis, serum (11/24/2024 10:01 AM EDT) Protein Total 8.2(H) 6.4 - 8.2 g/dL 11/27/2024 12:42 PM EDT [facility] Albumin Percent 51.9(L) 52.9 - 66.9 % 11/27/2024 12:42 PM EDT [facility] Albumin g/dl 4.3 3.7 - 4.9 g/dL 11/27/2024 12:42 PM EDT [facility] Alpha 1 Globulin % 4.4 3.3 - 5.8 % 11/27/2024 12:42 PM EDT [facility] Alpha 1 Globulin 0.4 0.2 - 0.4 g/dL 11/27/2024 12:42 PM EDT [facility] Alpha 2 Globulin % 8.8 7.5 - 13.4 % 11/27/2024 12:42 PM EDT [facility] Alpha 2 Globulin 0.7 0.5 - 0.9 g/dL 11/27/2024 12:42 PM EDT [facility] Beta Globulin % 13.0 8.5 - 13.7 % 11/27/2024 12:42 PM EDT [facility] Beta Globulin 1.1(H) 0.6 - 1.0 g/dL 11/27/2024 12:42 PM EDT [facility] Gamma Globulin % 21.9(H) 8.8 - 19.2 % 11/27/2024 12:42 PM EDT [facility] Gamma Globulin 1.8(H) 0.6 - 1.4 g/dL 11/27/2024 12:42 PM EDT [facility] Interpretation See Below 11/27/2024 12:42 PM EDT [facility] Comment: No monoclonal proteins seen on serum protein electrophoresis. Polyclonal increase in gamma globulins. Test performed at [facility], [address] , [place], [place] ??[address] ? [phone] Frances Abdalla MD, PhD - Drainage Engineer Blood Venous blood specimen / Unknown Venipuncture / Unknown 11/24/2024 10:01 AM EDT 11/24/2024 10:07 AM EDT Eleuterio Jefferson MD LAB BLOOD ORDERABL ES Final Result [facility] [address] [place] [address] * (ABNORMAL) Comprehensive metabolic panel (11/24/2024 10:01 AM EDT) Only the most recent of2 resultswithin the time period is included. Sodium 136 135 - 145 mmol/L LAB CHEMISTRY METHOD 11/24/2024 10:29 AM EDT [facility] Potassium 3.7 3.5 - 5.1 mmol/L LAB CHEMISTRY METHOD 11/24/2024 10:29 AM EDT [facility] Chloride 105 98 - 107 mmol/L LAB CHEMISTRY METHOD 11/24/2024 10:29 AM EDT [facility] CO2 23(L) 24 - 32 mmol/L LAB CHEMISTRY METHOD 11/24/2024 10:29 AM [facility] Anion Gap 8 5 - 14 LAB CHEMISTRY METHOD 11/24/2024 10:29 AM [facility] Glucose 84 70 - 99 mg/dL LAB CHEMISTRY METHOD 11/24/2024 10:29 AM [facility] BUN 39(H) 7 - 17 mg/dL LAB CHEMISTRY METHOD 11/24/2024 10:29 AM [facility] Creatinine 2.64(H) 0.50 - 1.00 mg/dL LAB CHEMISTRY METHOD 11/24/2024 10:29 AM [facility] eGFR 20(L) >=60 mL/min/1. 73m2 LAB CHEMISTRY METHOD 11/24/2024 10:29 AM [facility] Comment:Calculation based on the??Chronic Kidney Disease Epidemiology Collaboration (CKD-EPI) equation refit??without adjustment for race. BUN/Creatinine Ratio 14.8 12.0 - 20.0 LAB CHEMISTRY METHOD 11/24/2024 10:29 AM [facility] Calcium 9.6 8.4 - 10.2 mg/dL LAB CHEMISTRY METHOD 11/24/2024 10:29 AM [facility] AST (SGOT) 11 5 - 40 unit/L LAB CHEMISTRY METHOD 11/24/2024 10:29 AM [facility] ALT (SGPT) 5(L) 7 - 52 unit/L LAB CHEMISTRY METHOD 11/24/2024 10:29 AM [facility] Alkaline Phosphatase 73 34 - 104 unit/L LAB CHEMISTRY METHOD 11/24/2024 10:29 AM [facility] Total Protein 9.0(H) 6.4 - 8.5 g/dL LAB CHEMISTRY METHOD 11/24/2024 10:29 AM [facility] Albumin 4.4 3.5 - 5.0 g/dL LAB CHEMISTRY METHOD 11/24/2024 10:29 AM EDT [facility] Total Bilirubin 0.4 0.3 - 1.0 mg/dL LAB CHEMISTRY METHOD 11/24/2024 10:29 AM EDT [facility] Blood Venous blood specimen / Unknown Venipuncture / Unknown 11/24/2024 10:01 AM EDT 11/24/2024 10:07 AM EDT Eleuterio Jefferson MD LAB BLOOD ORDERABL ES Final Result [facility] [address] [place] [address], [place] [phone] * (ABNORMAL) Urinalysis with microscopic reflex culture (09/15/2024 3:41 PM EST) Only the most recent of2 resultswithin the time period is included. Color, Urine Yellow Colorless, Yellow LAB URINALYSIS - AUTOMATED METHOD 09/15/2024 3:50 PM [facility] Clarity, Urine Clear Clear LAB URINALYSIS - AUTOMATED METHOD 09/15/2024 3:50 PM [facility] Specific [place] Urine 1.020 1.005 - 1.030 LAB URINALYSIS - AUTOMATED METHOD 09/15/2024 3:50 PM [facility] pH, Urine 6.5 5.0 - 8.0 pH LAB URINALYSIS - AUTOMATED METHOD 09/15/2024 3:50 PM EST [facility] Leukocytes, Urine Negative Negative WBCs/mcL LAB URINALYSIS - AUTOMATED METHOD 09/15/2024 3:50 PM [facility] Nitrite, Urine Negative Negative LAB URINALYSIS - AUTOMATED METHOD 09/15/2024 3:50 PM [facility] Protein, Urine 30(A) Negative mg/dL LAB URINALYSIS - AUTOMATED METHOD 09/15/2024 3:50 PM EST [facility] Glucose, Urine Negative Negative mg/dL LAB URINALYSIS - AUTOMATED METHOD 09/15/2024 3:50 PM [facility] Ketones, Urine Negative Negative mg/dL LAB URINALYSIS - AUTOMATED METHOD 09/15/2024 3:50 PM EST [facility] Blood, Urine Negative Negative mg/dL LAB URINALYSIS - AUTOMATED METHOD 09/15/2024 3:50 PM EST [facility] RBC, Urine 2 0 - 3 /HPF 09/15/2024 3:50 PM EST [facility] WBC, Urine 2 0 - 5 /HPF 09/15/2024 3:50 PM [facility] Urine Urine specimen obtained by clean catch procedure / Unknown Non-blood Collection / Unknown 09/15/2024 3:41 PM EST 09/15/2024 3:44 PM EST us Olivia ALVAREZ LAB URINE ORDERABLES Final Resul t [facility] [address] [place] [address], [place] [phone] * (ABNORMAL) CBC auto differential (09/15/2024 3:41 PM EST) WBC 5.3 4.0 - 10.5 K/mcL LAB HEMETOLOGY METHOD 09/15/2024 3:48 PM EST [facility] RBC 3.44(L) 4.20 - 5.40 M/mcL LAB HEMETOLOGY METHOD 09/15/2024 3:48 PM EST [facility] Hemoglobin 9.5(L) 12.5 - 16.0 g/dL LAB HEMETOLOGY METHOD 09/15/2024 3:48 PM [facility] Hematocrit 29.7(L) 37.0 - 47.0 % LAB HEMETOLOGY METHOD 09/15/2024 3:48 PM [facility] MCV 86.3 78.0 - 100.0 FL LAB HEMETOLOGY METHOD 09/15/2024 3:48 PM [facility] MCH 27.6 25.0 - 33.0 pcg LAB HEMETOLOGY METHOD 09/15/2024 3:48 PM [facility] MCHC 32.0 32.0 - 36.0 g/dL LAB HEMETOLOGY METHOD 09/15/2024 3:48 PM [facility] RDW 14.4 12.1 - 16.2 % LAB HEMETOLOGY METHOD 09/15/2024 3:48 PM [facility] Platelets 326 150 - 450 K/mcL LAB HEMETOLOGY METHOD 09/15/2024 3:48 PM [facility] MPV 8.9 7.4 - 11.4 FL LAB HEMETOLOGY METHOD 09/15/2024 3:48 PM [facility] Neutrophils Relative 45.5 44.0 - 74.0 % LAB HEMETOLOGY METHOD 09/15/2024 3:48 PM [facility] Lymphocytes Relative 31.1 20.0 - 48.0 % LAB HEMETOLOGY METHOD 09/15/2024 3:48 PM [facility] Monocytes Relative 13.6(H) 2.0 - 12.0 % LAB HEMETOLOGY METHOD 09/15/2024 3:48 PM [facility] Eosinophils Relative 8.3(H) 0.0 - 6.0 % LAB HEMETOLOGY METHOD 09/15/2024 3:48 PM [facility] Basophils Relative 0.9 0.0 - 2.0 % LAB HEMETOLOGY METHOD 09/15/2024 3:48 PM EST [facility] Neutrophils Absolute 2.41 1.80 - 7.80 K/mcL LAB HEMETOLOGY METHOD 09/15/2024 3:48 PM EST [facility] Lymphocytes Absolute 1.65 1.00 - 3.20 K/mcL LAB HEMETOLOGY METHOD 09/15/2024 3:48 PM EST [facility] Monocytes Absolute 0.72 0.00 - 0.80 K/mcL LAB HEMETOLOGY METHOD 09/15/2024 3:48 PM EST [facility] Eosinophils Absolute 0.44 0.00 - 0.50 K/mcL LAB HEMETOLOGY METHOD 09/15/2024 3:48 PM EST [facility] Basophils Absolute 0.05 0.00 - 0.20 K/mcL LAB HEMETOLOGY METHOD 09/15/2024 3:48 PM EST [facility] Blood Venous blood specimen / Unknown Venipuncture / Unknown 09/15/2024 3:41 PM EST 09/15/2024 3:45 PM EST [facility] LAB BLOOD ORDERABLES Final Resul t [facility] [address] [place] [address], [place] [phone] * (ABNORMAL) Sedimentation rate (09/15/2024 3:41 PM EST) Sed Rate 22(H) 0 - 20 mm/hr LAB HEMETOLOGY METHOD 09/15/2024 3:52 PM EST [facility] Blood Venous blood specimen / Unknown Venipuncture / Unknown 09/15/2024 3:41 PM EST 09/15/2024 3:45 PM EST us Olivia Balbina PA LAB BLOOD ORDERABLES Final Resul t [facility] [address] [place] [address], [place] [phone] * (ABNORMAL) Complement, total (09/15/2024 3:41 PM EST) Complement, Total (CH50) 98(H) 42 - 95 U/mL 09/19/2024 4:25 AM EST [facility] Comment: Test performed at [facility], [address], [place], [place] ??[address] ? [phone] Frances Abdalla MD, PhD - Drainage Engineer Blood Venous blood specimen / Unknown Venipuncture / Unknown 09/15/2024 3:41 PM EST 09/15/2024 3:45 PM EST us Olivia Balbina PA LAB BLOOD ORDERABLES Final Resul t Performing Organization Address [facility]/ZIP Co de Phone Number [facility] [address] [place] [address] * (ABNORMAL) C-reactive protein (09/15/2024 3:41 PM EST) Pathologist [facility] C-Reactive Protein 6.2(H) <=0.9 mg/dL LAB CHEMISTRY METHOD 09/15/2024 4:05 PM EST [facility] Blood Venous blood specimen / Unknown Venipuncture / Unknown 09/15/2024 3:41 PM EST 09/15/2024 3:51 PM EST us Olivia Balbina PA LAB BLOOD ORDERABLES Final Resul t [facility] [address] [place] [address], [place] [phone] * Protein, urine, random (09/15/2024 3:40 PM EST) [facility] Protein, Urine 20 >=14 mg/dL LAB CHEMISTRY METHOD 09/15/2024 8:45 PM EST [facility] Urine Urine specimen obtained by clean catch procedure / Unknown Non-blood Collection / Unknown 09/15/2024 3:40 PM EST 09/15/2024 3:44 PM EST Eleuterio Jefferson MD LAB URINE ORDERABL ES Final Result [facility] [address] [place] [address], [place] [phone] * (ABNORMAL) Basic metabolic panel (09/15/2024 3:40 PM EST) [facility] Sodium 136 135 - 145 mmol/L LAB CHEMISTRY METHOD 09/15/2024 4:07 PM [facility] Potassium 4.2 3.5 - 5.1 mmol/L LAB CHEMISTRY METHOD 09/15/2024 4:07 PM [facility] Chloride 103 98 - 107 mmol/L LAB CHEMISTRY METHOD 09/15/2024 4:07 PM [facility] CO2 26 24 - 32 mmol/L LAB CHEMISTRY METHOD 09/15/2024 4:07 PM [facility] Anion Gap 7 5 - 14 LAB CHEMISTRY METHOD 09/15/2024 4:07 PM [facility] Glucose 102 70 - 199 mg/dL LAB CHEMISTRY METHOD 09/15/2024 4:07 PM [facility] BUN 33(H) 7 - 17 mg/dL LAB CHEMISTRY METHOD 09/15/2024 4:07 PM [facility] Creatinine 2.26(H) 0.50 - 1.00 mg/dL LAB CHEMISTRY METHOD 09/15/2024 4:07 PM [facility] eGFR 24(L) >=60 mL/min/1. 73m2 LAB CHEMISTRY METHOD 09/15/2024 4:07 PM EST [facility] Comment:Calculation based on the??Chronic Kidney Disease Epidemiology Collaboration (CKD-EPI) equation refit??without adjustment for race. BUN/Creatinine Ratio 14.6 12.0 - 20.0 LAB CHEMISTRY METHOD 09/15/2024 4:07 PM EST [facility] Calcium 9.2 8.4 - 10.2 mg/dL LAB CHEMISTRY METHOD 09/15/2024 4:07 PM EST [facility] Blood Venous blood specimen / Unknown Venipuncture / Unknown 09/15/2024 3:40 PM EST 09/15/2024 3:46 PM EST Eleuterio Jefferson MD LAB BLOOD ORDERABL ES Final Result [facility] [address] [place] [address], [place] [phone] from Last 3 Months Insurance [facility] Care Teams Retort Engineer Relationship Specialty Start Date End Date Tiarra Nevarez FNP [address] [place] [id number] PCP - General Family Medicine 10/02/18
--- OUTSIDE RECORDS SUMMARY | 2024-12-10 18:18 | XMS_ITS | Encounter Summary ---
Author Organization [facility] Address [address] [place] [address] Care Team Providers Care Rec Therapist Name Role Phone Tiarra Nevarez APRN Primary Care Provide r Encounter Details Date Type Department Care Team (Late st Contact Info) Description 04/03/[address] [facility] [address] [facility] [address] [place] [address] Cyrus Lewis MD [address] [place] [address] Social History Tobacco Use Types Packs/Day Years Used Date Smoking Tobacco: Some Days Cigarettes Smokeless Tobacco: Never Comments:Cigarette once in a while Alcohol Use Standard Drinks/Week Comments Not Currently 0 (1 standard drink = 0.6 oz pur e alcohol) Comments No Sex and Gender Information Value Date Recorded Sex Assigned at Not on file Legal Sex Female 8:27 AM EST Gender Identity Not on file Sexual Orientation Not on file documented as of this encounter Plan of Treatment Not on file documented as of this encounter Procedures Procedure Name Priority Date/Time Associated Diagnosis Comments PATHOLOGY REPORT 04/03/2023 12:0 0 AM EDT documented in this encounter Results * PATHOLOGY REPORT (04/03/2023 12:00 AM EDT) us Cyrus Lewis MD PATHOLOGY/CYTOLOGY ORDERABLES F inal Result documented in this encounter Visit Diagnoses Not on filedocumented in this encounter Care Teams Rec Therapist Relationship Specialty Start Date End Date Tiarra Nevarez APRN [address] [facility] [address] [place] [address] PCP - General Family Medicine 03/28/23 documented as of this encounter
--- OUTSIDE RECORDS SUMMARY | 2024-12-10 18:18 | XMS_ITS | Encounter Summary ---
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 use:Light tobacco smoker Comments Unknown Sex and Gender Information Value Date Recorded Sex Assigned at Not on file Legal Sex Female 8:13 PM EDT Gender Identity Not on file Sexual Orientation Not on file documented as of this encounter Plan of Treatment Not on file documented as of this encounter Visit Diagnoses Not on filedocumented in this encounter Care Teams Box Estimator Relationship Specialty Start Date End Date Veena Arellano MD [facility] Family Medicine [address] [place] [address] PCP - General 03/26/23 Veena Arellano MD [facility] Family Medicine [address] [place] [address] PCP - Backup PCP Family Medicine 09/20/23 documented as of this encounter
--- OUTSIDE RECORDS SUMMARY | 2024-12-10 18:18 | XMS_ITS | Clinical Summary ---
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
--- OUTSIDE RECORDS SUMMARY | 2024-12-10 18:18 | XMS_ITS | Clinical Summary ---
Author Organization [facility] Address [address] [place] [address] Phone Care Team Providers Care Stone Belt Sander Name Role Phone Tiarra Nevarez ÓSCAR Primary Care Provider [phone] Allergies No known active allergies Medications dorzolamide-justice olol (COSOPT) 22.3-6.8 MG/ML ophthalmic solution 1 drop 2 (two) times a day Active ergocalciferol 1.25 MG (57801 UT) capsule Take 50,000 Units by mouth [...] Comments Breast Cancer Screening 1964 Pneumococcal Vaccine: 50+ Ye ars (1 of 2 - PCV) 1983 Colorectal Cancer Screening: Annual FOBT 2013 Colorectal Cancer Screening: Colonoscopy 2013 Colorectal Cancer Screening: Sigmoidoscopy 2013 Influenza Vaccine (Season Ended) 2025 Hepatitis B Vaccine Aged Out No longe r eligible based on patient's age to complete this topic Insurance [place] [place] [address] [place] Care Teams Stone Belt Sander Relationship Specialty Start Date End Date Tiarra Nevarez ARNP [address] [place] [address] [address] [place] [address] PCP - General Nurse Practitioner 06/14/22
--- OUTSIDE RECORDS SUMMARY | 2024-12-10 18:18 | XMS_ITS | Clinical Summary ---
Author Organization [facility] Address [address] [place] [address] Care Team Providers Care Mica Plate Layer Hand Name Role Phone Tiarra Nevarez ANCELMO Primary Care Provide r Allergies No known active allergies Medications Humira Pen 40 MG/0.4ML pen-injector kit CITRATE FREE Inject 40 mg under the skin every 14 days (2 weeks). 01/11/2023 Active hydroxychloroqu ine (PLAQUENIL) 200 MG tablet Take by mouth every morning with breakfast. 12/21/2022 Active hydroCHLOROthia zide (HYDRODIURIL) 12.5 MG tablet Take 12.5 mg [...] patient's age to complete this topic Insurance [facility] HMO Care Teams Mica Plate Layer Hand Relationship Specialty Start Date End Date Tiarra Nevarez APRN [facility] [address] [place] [address] PCP - General Family Medicine 03/28/23
--- OUTSIDE RECORDS SUMMARY | 2024-12-10 18:18 | XMS_ITS | Clinical Summary ---
Author Organization [facility] Address [address] [place] [address] Care Team Providers Care Truck Terminal Manager Name Role Phone Roque Jorge Luisclara Carrie AG Primary Care Provider [phone] Allergies No known active allergies Medications Medication Sig Dispensed Refills Start Date End Date Status ergocalciferol (VITAMIN D2) capsule 48986 units Take 1 capsule (50,000 Units total) [...] age to complete this topic Care Teams Truck Terminal Manager Relationship Specialty Start Date End Date Tiarra Nevarez APRN [address] [place] [id number] PCP - General Family Medicine 10/02/18
== END 2024-12-10 16:10 | disposition home or self-care (01) ==
LOC: HO.HKAE 15:41
PROVIDERS: Visit Provider Internal Medicine Hypertension Specialist
DX: N18.9 Chronic kidney disease, unspecified (principal)
CPT/HCPCS: 99214

== ENCOUNTER → 2024-12-10 15:40 | Outpatient (BNVA) | payer BC, SELFPAY | PROVIDERS: Visit Provider Internal Medicine Hypertension Specialist ==

== ENCOUNTER 2025-02-19 08:16 | Day surgery (SDC) | payer BC, SELFPAY ==
--- OUTSIDE RECORDS SUMMARY | 2025-01-23 12:12 | XMS_ITS | Clinical Summary ---
Author Organization [facility] Address [address] [place] [address] Phone Care Team Providers Care Marketing Research Analyst Name Role Phone Roque, Jorge Luisclara MADAY Primary Care Provider [phone] Medical History Medical History Date Comments Arthritis DX:Arthritis;COM MENT:RA Hypertension DX:Hypertension Uveitis DX:Uveitis Lupus DX:Lupus Psoriatic arthritis ([facility] V24, [facility] V28) DX:Psoriatic arthritis ([facility]) Social History Tobacco Use Types [...] 10:01 AM EDT Chronic kidney disease, unspecified from Last 3 Months Results * (ABNORMAL) Urinalysis with reflex microscopic and culture (11/24/2024 10:01 AM EDT) Color, Urine Yellow Colorless, Yellow LAB URINALYSIS - AUTOMATED METHOD 11/24/2024 10:18 AM [facility] Clarity, Urine Clear Clear LAB URINALYSIS - AUTOMATED METHOD 11/24/2024 10:18 AM [facility] Specific [place] Urine 1.020 1.005 - 1.030 LAB URINALYSIS - AUTOMATED METHOD 11/24/2024 10:18 AM [facility] pH, Urine 5.5 5.0 - 8.0 pH LAB URINALYSIS - AUTOMATED METHOD 11/24/2024 10:18 AM [facility] Leukocytes, Urine Negative Negative WBCs/mcL LAB URINALYSIS - AUTOMATED METHOD 11/24/2024 10:18 AM EDT [facility] Nitrite, Urine Negative Negative LAB URINALYSIS - AUTOMATED METHOD 11/24/2024 10:18 AM EDT [facility] Protein, Urine 30(A) Negative mg/dL LAB URINALYSIS - AUTOMATED METHOD 11/24/2024 10:18 AM EDT [facility] Glucose, Urine Negative Negative mg/dL LAB URINALYSIS - AUTOMATED METHOD 11/24/2024 10:18 AM EDT [facility] Ketones, Urine Negative Negative mg/dL LAB URINALYSIS - AUTOMATED METHOD 11/24/2024 10:18 AM EDT [facility] Blood, Urine Negative Negative mg/dL LAB URINALYSIS - AUTOMATED METHOD 11/24/2024 10:18 AM EDT [facility] Urine Urine specimen obtained by clean catch procedure / Unknown Non-blood Collection / Unknown 11/24/2024 10:01 AM EDT 11/24/2024 10:08 AM EDT Eleuterio Jefferson MD LAB URINE ORDERABL ES Final Result [facility] [address] [place] [address], * Glomerular basement membrane antibodies (11/24/2024 10:01 AM EDT) Glomerular Basement Membrane <1.5 <7.0 U/mL 11/27/2024 2:40 PM EDT [facility] Comment: INTERPRETATION: Negative Test performed at [facility], [address], [place], [place] ??[address] ? [phone] Frances Abdalla MD, PhD - Dry Ice Maker Blood Venous blood specimen / Unknown Venipuncture / Unknown 11/24/2024 10:01 AM EDT 11/24/2024 10:07 AM EDT us Eleuterio Jefferson MD LAB BLOOD ORDERABL ES Final Result [facility] [address] [place] [address] * Creatinine, urine, random (11/24/2024 10:01 AM EDT) Creatinine, Urine 138.0 mg/dL LAB CHEMISTRY METHOD 11/24/2024 10:31 AM EDT [facility] Urine Urine specimen obtained by clean catch procedure / Unknown Non-blood Collection / Unknown 11/24/2024 10:01 AM EDT 11/24/2024 10:08 AM EDT Narrative [facility] - 11/24/2024 10:31 AM EDT No reference range has been established for this assay (test result). us Eleuterio Jefferson MD LAB URINE ORDERABL ES Final Result Performing Organization Address City/[facility]/ZIP Co de Phone Number [facility] [address] [place] [address], [place] [phone] * Anti-neutrophilic cytoplasmic antibody (11/24/2024 10:01 AM EDT) P-ANCA <1:20 <1:20 Titer 11/27/2024 2:36 PM EDT [facility] C-ANCA <1:20 <1:20 Titer 11/27/2024 2:36 PM EDT [facility] Comment: Test performed at [facility], [address], [place], [place] ??[address] ? [phone] Frances Abdalla MD, PhD - Dry Ice Maker Blood Venous blood specimen / Unknown Venipuncture / Unknown 11/24/2024 10:01 AM EDT 11/24/2024 10:07 AM EDT Eleuterio Jefferson MD LAB BLOOD ORDERABL ES Final Result [facility] [address] [place] [address] * (ABNORMAL) Complete blood count (11/24/2024 10:01 AM EDT) [facility] WBC 5.2 4.0 - 10.5 K/mcL LAB HEMETOLOGY METHOD 11/24/2024 10:10 AM EDT [facility] RBC 3.81(L) 4.20 - 5.40 M/mcL LAB HEMETOLOGY METHOD [facility]24 [facility] Hemoglobin 10.6(L) 12.5 - 16.0 g/dL LAB HEMETOLOGY METHOD 11/24[facility]2024 10[facility] Hematocrit 32.6(L) 37.0 - 47.0 % LAB HEMETOLOGY METHOD 11/24/2024 10:[facility] MCV 85.6 78.0 - 100.0 FL LAB HEMETOLOGY METHOD 11/24/2024 10:[facility] MCH 27.8 25.0 - 33.0 pcg LAB HEMETOLOGY METHOD 11/24/2024 10:[facility] MCHC 32.5 32.0 - 36.0 g/dL LAB HEMETOLOGY METHOD 11/24/2024 10:[facility] RDW 14.1 12.1 - 16.2 % LAB HEMETOLOGY METHOD 11/24/2024 10:[facility] Platelets 348 150 - 450 K/mcL LAB HEMETOLOGY METHOD 11/24/2024 10:10 AM EDT [facility] MPV 8.0 7.4 - 11.4 FL LAB HEMETOLOGY METHOD 11/24/2024 10:10 AM EDT [facility] Blood Venous blood specimen / Unknown Venipuncture / Unknown 11/24/2024 10:01 AM EDT 11/24/2024 10:07 AM EDT us Eleuterio Jefferson MD LAB BLOOD ORDERABL ES Final Result [facility] [address] [place] [address], [place] [phone] * C3 complement (11/24/2024 10:01 AM EDT) C3 Complement 119 87 - 200 mg/dL LAB CHEMISTRY METHOD 11/24/2024 3:54 PM EDT [facility] Blood Venous blood specimen / Unknown Venipuncture / Unknown 11/24/2024 10:01 AM EDT 11/24/2024 10:07 AM EDT us Eleuterio Jefferson MD LAB BLOOD ORDERABL ES Final Result [facility] [address] [place] [address], [place] [phone] * C4 complement (11/24/2024 10:01 AM EDT) C4 Complement 41 19 - 52 mg/dL LAB CHEMISTRY METHOD 11/24/2024 4:02 PM EDT [facility] Blood Venous blood specimen / Unknown Venipuncture / Unknown 11/24/2024 10:01 AM EDT 11/24/2024 10:07 AM EDT Eleuterio Lilibeth Jefferson MD LAB BLOOD ORDERABL ES Final Result [facility] [address] [place] [address], [place] [phone] * (ABNORMAL) Protein electrophoresis, serum (11/24/2024 10:01 [...] - 13.7 % 11/27/2024 12:42 PM EDT [facility] Beta Globulin 1.1(H) 0.6 - 1.0 g/dL 11/27/2024 12:42 PM EDT [facility] Gamma Globulin % 21.9(H) 8.8 - 19.2 % 11/27/2024 12:42 PM EDT [facility] Gamma Globulin 1.8(H) 0.6 - 1.4 g/dL 11/27/2024 12:42 PM EDT [facility] Interpretation See Below 11/27/2024 12:42 PM EDT [facility] Comment: No monoclonal proteins seen on serum protein electrophoresis. Polyclonal increase in gamma globulins. Test performed at [facility], [address], [place], [place] ??[address] ? [phone] Frances Abdalla MD, PhD - Dry Ice Maker Blood Venous blood specimen / Unknown Venipuncture / Unknown 11/24/2024 10:01 AM EDT 11/24/2024 10:07 AM EDT Eleuterio Jefferson MD LAB BLOOD ORDERABL ES Final Result [facility] [address] [place] [address] * (ABNORMAL) Comprehensive metabolic panel (11/24/2024 10:01 AM EDT) Sodium 136 135 - 145 mmol/L LAB CHEMISTRY METHOD 11/24/2024 10:29 AM [facility] Potassium 3.7 3.5 - 5.1 mmol/L LAB CHEMISTRY METHOD 11/24/2024 10:29 AM [facility] Chloride 105 98 - 107 mmol/L LAB CHEMISTRY METHOD 11/24/2024 10:29 AM [facility] CO2 23(L) 24 - 32 mmol/L LAB CHEMISTRY METHOD 11/24/2024 10:29 AM [facility] Anion Gap 8 5 - 14 LAB CHEMISTRY METHOD 11/24/2024 10:29 AM [facility] Glucose 84 70 - 99 mg/dL LAB CHEMISTRY METHOD 11/24/2024 10:29 AM [facility] BUN 39(H) 7 - 17 mg/dL LAB CHEMISTRY METHOD 11/24/2024 10:29 AM [facility] Creatinine 2.64(H) 0.50 - 1.00 mg/dL LAB CHEMISTRY METHOD 11/24/2024 10:29 AM [facility] eGFR 20(L) >=60 mL/min/1. 73m2 LAB CHEMISTRY METHOD 11/24/2024 10:29 AM [facility] Comment:Calculation based on the??Chronic Kidney Disease Epidemiology Collaboration (CKD-EPI) equation refit??without adjustment for race. BUN/Creatinine Ratio 14.8 12.0 - 20.0 LAB CHEMISTRY METHOD 11/24/2024 10:29 AM [facility] Calcium 9.6 8.4 - 10.2 mg/dL LAB CHEMISTRY METHOD 11/24/2024 10:29 AM [facility] AST (SGOT) 11 5 - 40 unit/L LAB CHEMISTRY METHOD 11/24/2024 10:29 AM [facility] ALT (SGPT) 5(L) 7 - 52 unit/L LAB CHEMISTRY METHOD 11/24/2024 10:29 AM [facility] Alkaline Phosphatase 73 34 - 104 unit/L LAB CHEMISTRY METHOD 11/24/2024 10:29 AM [facility] Total Protein 9.0(H) 6.4 - 8.5 g/dL LAB CHEMISTRY METHOD 11/24/2024 10:29 AM [facility] Albumin 4.4 3.5 - 5.0 g/dL LAB CHEMISTRY METHOD 11/24/2024 10:29 AM [facility] Total Bilirubin 0.4 0.3 - 1.0 mg/dL LAB CHEMISTRY METHOD 11/24/2024 10:29 AM [facility] Blood Venous blood specimen / Unknown Venipuncture / Unknown 11/24/2024 10:01 AM EDT 11/24/2024 10:07 AM EDT us Eleuterio Jefferson MD LAB BLOOD ORDERABL ES Final Result [facility] [address] [place] [address], from Last 3 Months Insurance [facility] Care Teams Marketing Research Analyst Relationship Specialty Start Date End Date Tiarra Nevarez FNP [address] [place] [id number] PCP - General Family Medicine 10/02/18
[2025-02-19] VITALS (15 sets, daily range): BP systolic 105–133; BP diastolic 48–67; PULSE 66–77; RESP 12–18; TEMP 36.4–36.7; O2SAT 99–100; BMI 24.0
--- NOTE | ~2025-02-19 | CT_ITS ---
PROCEDURE: CT GUIDED BIOPSY, LEFT KIDNEY CLINICAL INFORMATION: Chronic kidney disease. COMPARISON: None available. TECHNIQUE: Explaining CT fluoroscopy guided left kidney biopsy procedure, benefits and risk, a written consent was obtained. Patient was placed prone on CT fluoroscopy table and preliminary CT imaging was obtained through the abdomen. An optimal axial image was selected and markers placed along the left posterolateral chest and repeat CT imaging was obtained. An optimal marker was selected and marked on the skin with a marker. The marked area was cleaned and draped in usual sterile manner with 2% chlorhexidine solution. 1% lidocaine was injected puncture site. Through a small skin incision a 18-gauge short guide needle was advanced from the skin into the lower pole left kidney. Coaxially a biopsy gun was administered and 3 pass core biopsy was performed postbiopsy 2 Gelfoam slurry inserted through the guide needle and the guide needle was removed. Complete hemostasis achieved at puncture site. Sterile dressing applied post procedure. Repeat CT imaging was obtained post biopsy. This CT examination was performed using dose optimization techniques as appropriate, variously including the following: *Automated exposure control *Adjustment of mA and/or kV according to patient size (this includes techniques or standardized protocols for targeted exams where dose is matched to indication/reason for exam; i.e. extremities or head) *Use of iterative reconstruction technique FINDINGS: On preliminary CT imaging the left kidneys low-lying compared to right side. There is a small 4.4 x 4.0 cm cyst in the upper pole left kidney. CT fluoroscopy guided 3 pass core biopsy lower pole left kidney was performed. Repeat CT imaging performed post biopsy revealed minimal perinephric stranding. No bleeding was seen. CT/CT biopsy renal RT IMPRESSION: Successful CT fluoroscopy guided lower pole left kidney core biopsy performed without immediate complications. Electronically signed by: Erlin Ng MD 02/19/2025 01:55 PM EDT
[2025-02-19 08:54] LABS: MANUAL DIFF FLAG NO
[2025-02-19 08:57] LABS: Hematocrit 27.1 % (37.0-47.0); Hemoglobin 9.0 g/dl (12.0-16.0); Imm Gran Abs Auto 0.04 X10*3/uL (0.00-0.03); Imm Gran Pct Auto 0.7 % (0.0-0.4); Lymphocytes Absolute Auto 0.9 X10*3/uL (1.2-4.9); Mean Corpuscular HGB Conc 33.2 g/dl (31.0-35.0); Mean Corpuscular Hemoglobin 28.3 pg (27.0-33.0); Mean Corpuscular Volume 85.2 fL (80.0-98.0); NRBC Abs Auto 0.000 X10*3/uL (0.0-0.012); NRBC Pct Auto 0.0 /100WBC (0.0-0.2); Platelet Count 304 X10*3/uL (160-400); Red Blood Count 3.18 X10*6/uL (4.20-5.50); White Blood Count 5.9 X10*3/uL (4.8-10.8)
[2025-02-19 09:01] LABS: INTERNATIONAL NORM RATIO 1.1 (0.9-1.1); Prothrombin Time 12.4 SEC (10.9-12.4)
[2025-02-19 09:04] LABS: Partial Thromboplastin Time 30.6 SEC (26.0-36.8)
[2025-02-19 09:17] LABS: Anion Gap 12 (12-20); Blood Urea Nitrogen 40 mg/dL (9-16); Calcium 9.2 mg/dL (8.4-10.2); Carbon Dioxide 22 mmol/L (22-29); Chloride 108 mmol/L (96-108); Creatinine Clr Calc Pharmacy 16.5; Estimated Glomerular Filt Rate 14; Potassium 4.1 mmol/L (3.3-5.1); Sodium 138 mmol/L (135-145)
== END 2025-02-19 13:32 | disposition home or self-care (01) ==
PROVIDERS: Radiology Diagnostic Radiology; Visit Provider Internal Medicine Hypertension Specialist
DX: I12.9 Hypertensive chronic kidney disease with stage 1 through stage 4 chronic kidney disease, or unspecified chronic kidney disease (principal); N18.9 Chronic kidney disease, unspecified; M32.9 Systemic lupus erythematosus, unspecified; M35.1 Other overlap syndromes; L40.50 Arthropathic psoriasis, unspecified; N28.1 Cyst of kidney, acquired; H20.9 Unspecified iridocyclitis; Z79.899 Other long term (current) drug therapy; Z79.620 Long term (current) use of immunosuppressive biologic; Z90.49 Acquired absence of other specified parts of digestive tract
CPT/HCPCS: 36415; 50200; 77012; 80048; 85025; 85610; 85730; 88300; 88305; 88313; 88346; 88348; 88350; 99152; J2003; J2250; J3010

== ENCOUNTER → 2025-02-19 10:28 | Outpatient (BNV) | payer BC, SELFPAY | PROVIDERS: Visit Provider Radiology Diagnostic Radiology | DX: N28.1 Cyst of kidney, acquired (principal) | CPT/HCPCS: 50200; 77012 ==

== ENCOUNTER 2025-03-18 15:58 | Outpatient (AMB) | payer BC, SELFPAY ==
[2025-03-18 16:00] VITALS: BP 136/68; PULSE 87; O2SAT 98; BMI 24.8
--- NOTE | 2025-03-18 16:00 | HO.NEPHOV_ITS ---
Vital Signs 03/18/25 16:00 Height 5 ft 5 in Weight 149 lb BMI 24.8 BP 136/68 Blood Pressure Location Lt brachial Position Sitting Pulse 87 Pulse Source Pulse Oximeter Pulse Oximetry (%) 98 Oxygen Delivery Method Room Air Intake Visit Reasons: Follow-up Cable Television Access Coordinator Required: No Accompanied by: Spouse Allergies No Known Allergies Allergy (Verified 03/18/25 16:02) Medication List - Last Reconciled 03/18/25 by Eleuterio Jefferson MD amlodipine 5 mg PO DAILY hydroxychloroquine 200 mg PO DAILY HPI Comments Details: Cristiana 57 woman with a history of psoriatic arthritis, uveitis/MCTD/SLE. She was diagnosed with lupus more than 30 years ago. She was on Humira 40 mg weekly 2 doses and then every other week. She was referred back in 05/09/2022 for elevated serum creatinine 1.4. Since then creatinine has been between 1.1.2 mg/dL. In the past she had a trial of methotrexate which was discontinued due to hair loss. Recently she had a CT scan in 07/09/2023 which showed hilar adenopathy. She was seen by pediatric oncologist and a CT scan with IV contrast has been recommended. 10/15/24 Feels abdominal bloating; BM every 3 days. Takes Miralax Recent serum creatinine was 2.2 , up from 1.7 mg/dL. She had resp infection last month She was no specific complaints. Currently on Certolizimab 12/10/2024. Overall she is feeling fine. Denies any specific complaints today. Accompanied by her . 03/18/25 s/p kidney biopsy [facility] Medical History Uveitis Psoriasis Mixed collagen vascular disease Hypertension Surgical History History of cholecystectomy Family History Mother Hypertension Diabetes Cancer Sister Diabetes Hypertension Brother Hypertension Diabetes Maternal Aunt Diabetes Cancer Social History Alcohol intake: current Comment: Rare Patient Tobacco Use Status: Current someday Tobacco user Physical Exam Vital Signs: Last Vital Signs Pulse 87 03/18/25 16:00 BP 136/68 03/18/25 16:00 Pulse Ox 98 03/18/25 16:00 Oxygen Delivery Method Room Air 03/18/25 16:00 BMI result Body Mass Index 24.8 Const General: comfortable; No acute distress Orientation/consciousness: patient oriented x3 Eyes General: appearance normal, both eyes and all related structures Visual Salomon: normal visual salomon by confrontation Neck Neck: Yes supple and Yes no JVD Resp Effort & Inspection: normal respiratory effort and respiratory effort not decreased Auscultation: rhonchi Cardio Palpation: no palpable S3 and no palpable S4 Heart sounds: no rubs GI Inspection: Yes normal to inspection Palpation (GI): Soft to palpation Percussion: Yes normal to percussion Auscultation: normal bowel sounds General: Yes no CVA tenderness Back/Spine/Pelvis Back: no CVA tenderness Skin General skin exam: no petechiae and no purpura Neuro General: patient oriented x3 and no focal motor deficits Extrem General: No clubbing and No edema Results Reviewed Nephrology Results: Hgb, (12.0-16.0) 9.0 g/dl L 02/19/25 WBC, (4.8-10.8) 5.9 X10*3/uL 02/19/25 Plt Count, (160-400) 304 X10*3/uL 02/19/25 Sodium, (135-145) 138 mmol/L 02/19/25 Potassium, (3.3-5.1) 4.1 mmol/L 02/19/25 Chloride, (96-108) 108 mmol/L 02/19/25 Carbon Dioxide, (22-29) 22 mmol/L 02/19/25 BUN, (9-16) 40 mg/dL H 02/19/25 Creatinine, (0.5-1.4) 3.38 mg/dL H 02/19/25 Calcium, (8.4-10.2) 9.2 mg/dL 02/19/25 Assessment & Plan Assessment & Plan (1) CKD (chronic kidney disease): Code(s): N18.9 - Chronic kidney disease, unspecified Category: Medical Plan Rolanda has chronic kidney disease with a baseline creatinine is around 1.4 mg/dL in the setting of connective tissue disease overlap syndrome/lupus/M CTD. Recently she was found to have mediastinal lymphadenopathy. Creatinine is bumped to 1.9. This may be due to hypoperfusion. Clinically she appears euvolemic no edema. Stopped Lasix and will repeat labs She has at a risk for contrast induced nephropathy. If possible we should avoid IV contrast. However if the repeat serum creatinine is less than 1.5, we could consider CT scan with IV contrast. Other option would be to try alternate imaging techniques to evaluate the adenopathy without IV contrast. BP better controlled Keep Amlodipine 5 mg QD stay on low salt diet. 10/15/24 Worsening creatinine Is this related to Cimzia? 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 Repeat renal panel today along with urine studies and serologies If renal fx worsens , will obtain a kidney biopsy 12/10/2024 Worsening renal function most likely due to Cimzia. We discussed the pros and cons. Discussed importance of obtaining a kidney biopsy for definite diagnosis she is agreeable. Ordered kidney biopsy. She will check with the health/safety job titles to switch to a different agent. 03/18/25 Worsening renal function No s/s of uremia or fluid overlaod Biospy shows : Global sclerosis : 30% ; Tubular atrophy : 40-45% and Vascular sclerosis : Moderate No immunecomplex deposition or glomerular inflammation; No crescents Based on biospy, no need foor immunosuppression. Optimize renal function Recheck renal panel in few weeks along with HCT Continue to avoid nephrotoxins Orders: Orders Basic Metabolic Panel 2 Months N18.9 - Chronic kidney disease, unspecified IRON PROFILE 6 Weeks N18.9 - Chronic kidney disease, unspecified Ferritin 6 Weeks N18.9 - Chronic kidney disease, unspecified Basic Metabolic Panel 6 Weeks N18.9 - Chronic kidney disease, unspecified Complete Blood Count no Diff 6 Weeks N18.9 - Chronic kidney disease, unspecified Coding Level of Care Code Est Pt Level 4 (98222) Diagnoses CKD (chronic kidney disease) N18.9
--- OUTSIDE RECORDS SUMMARY | 2025-03-18 16:27 | XMS_ITS | Clinical Summary ---
Author Organization [facility] Address [address] [place] [address] Phone Care Team Providers Care Parcel Post Delivery Name Role Phone Tiarra Nevarez ÓSCAR Primary Care Provider [phone] Allergies No known active allergies Medications dorzolamide-justice olol (COSOPT) 22.3-6.8 MG/ML ophthalmic solution 1 drop 2 (two) times a day Active ergocalciferol 1.25 MG (16587 UT) capsule Take 50,000 Units by mouth [...] Cancer Screening: Sigmoidoscopy 2013 Influenza Vaccine (#1) 2025 Hepatitis B Vaccine Aged Out No longe r eligible based on patient's age to complete this topic [place] [address] [place] [address] [place] Care Teams Parcel Post Delivery Relationship Specialty Start Date End Date Tiarra Nevarez ARNP [address] [place] [address] [address] [place] [address] PCP - General Nurse Practitioner 06/14/22
--- OUTSIDE RECORDS SUMMARY | 2025-03-18 16:27 | XMS_ITS | Encounter Summary ---
Author Organization [facility] Address [address] [place] [address] Care Team Providers Care Apple Press Operator Name Role Phone Veena Arellano MD Primary Care Provider [phone] Veena Arellano MD Unavailable [phone] Encounter Details Date Type Department Care Team (Late st Contact Info) Description 04/27/2018 Orders Only NON FC SA NON FC UNK Provider, Unknown Social History Tobacco Use Types Packs/Day Years Used Date Smoking Tobacco: Never Assessed Comments:Smoking Status:Toba junior accountant use:Light tobacco smoker Comments Unknown Sex and Gender Information Value Date Recorded Sex Assigned at Not on file Legal Sex Female 8:13 PM EDT Gender Identity Not on file Sexual Orientation Not on file documented as of this encounter Plan of Treatment Not on file documented as of this encounter Visit Diagnoses Not on filedocumented in this encounter Care Teams Apple Press Operator Relationship Specialty Start Date End Date Veena Arellano MD [facility] Family Medicine [address] [place] [id number] PCP - General 03/26/23 Veena Arellano MD [facility] Family Medicine [address] [place] [address] PCP - Backup PCP Family Medicine 09/20/23 documented as of this encounter
--- OUTSIDE RECORDS SUMMARY | 2025-03-18 16:27 | XMS_ITS | Clinical Summary ---
Author Organization [facility]ated [facility] Address [address] [place] [address] Care Team Providers Care Svp Monetization Name Role Phone Tiarra Nevarez ANCELMO Primary [...] 64 04/03/2023 10:59 AM EDT Temperature 36.7 C (98.1 F) 04/03/2023 10:12 AM EDT Respiratory Rate 16 04/03/2023 10:59 AM EDT [...] Pap Smear (Ages 21-65) 1985 Mammogram 2004 RSV Vaccine 60 years and old er and Patients (1 - Risk 60-74 years 1-dose series) 2024 Influenza Vaccine 03/20/2025 Colonoscopy 04/03/2033 04/03/2023 Hepatitis B Vaccines Aged Out No long er eligible based on patient's age to complete this topic Insurance Unit [address] [place] [address] HMO Care Teams Svp Monetization Relationship Specialty Start Date End Date Tiarra Nevarez APRN 4 [facility] [address] [place] [address] PCP - General Family Medicine 03/28/23
--- OUTSIDE RECORDS SUMMARY | 2025-03-18 16:27 | XMS_ITS | Clinical Summary ---
Author Organization [facility] Address [address] [facility] [place] [address] Phone Care Team Providers Care Knockout Machine Operator Name Role Phone Roque, Tiarra NASSAR Primary Care Provider [phone] Medical History Medical History Date Comments Arthritis DX:Arthritis;COM MENT:RA Hypertension DX:Hypertension Uveitis DX:Uveitis Lupus DX:Lupus Psoriatic arthritis ([facility]/HCC V24, [facility]/HCC V28) DX:Psoriatic arthritis ([facility]) Social History Tobacco Use Types Packs/Day Years [...] Panel) 07/28/2022 Colorectal Cancer Screening: Colonoscopy 07/28/2022 HIV Screening 07/28/2022 Hepatitis C Screening 07/28/2022 Social Influencers of Health Screening 07/28/2022 Zoster Vaccines (2 of 2) 06/29/2023 05/04/2023 COVID-19 Vaccine (4 - season) 2024 08/26/2021, 12/23/2020, 11/16/2020 Depression Screening 08/20/2024 DTaP,Tdap,and Td Vaccines (2 - Td or Tdap) 11/04/2024 11/04/2014 Influenza Vaccine (#1) 2025 Hypertension/CHF/CAD Annual BMP Blood Test 03/02/2026 03/02/2025, 11/24/2024, 09/15/2024, Additional history exists RSV Immunization Adult Patients (1 - 1-dose 75+ series) 2039 Pneumococcal Vaccine: 50+ Years Completed 05/06/2023 HIB Vaccines Aged Out No [...] Diagnosis Comments CBC WITH AUTO DIFFERENTIAL Routine 03/02/2025 4:09 PM EDT Mixed connective tissue disease ([facility] V24) Nonspecific abnormal results of kidney function study Polypharmacy Healed perforation of ear drum URINALYSIS WITH REFLEX MICROSCOPIC AND CULTURE Routine 03/02/2025 4:09 PM EDT Mixed connective tissue disease ([facility] V24) Nonspecific abnormal results of kidney function study Polypharmacy Healed perforation of ear drum COMPLEMENT, TOTAL Routine 03/02/2025 4:0 9 PM EDT Mixed connective tissue disease ([facility] V24) Nonspecific abnormal results of kidney function study Polypharmacy Healed perforation of ear drum CBC AND DIFFERENTIAL Routine 03/02/2025 4:09 PM EDT Mixed connective tissue disease ([facility] V24) Nonspecific abnormal results of kidney function study Polypharmacy Healed perforation of ear drum C-REACTIVE PROTEIN Routine 03/02/2025 4: 09 PM EDT Mixed connective tissue disease ([facility] V24) Nonspecific abnormal results of kidney function study Polypharmacy Healed perforation of ear drum C4 COMPLEMENT Routine 03/02/2025 4:09 PM EDT Mixed connective tissue disease ([facility] V24) Nonspecific abnormal results of kidney function study Polypharmacy Healed perforation of ear drum C3 COMPLEMENT Routine 03/02/2025 4:09 PM EDT Mixed connective tissue disease ([facility] V24) Nonspecific abnormal results of kidney function study Polypharmacy Healed perforation of ear drum SEDIMENTATION RATE Routine 03/02/2025 4: 09 PM EDT Mixed connective tissue disease ([facility] V24) Nonspecific abnormal results of kidney function study Polypharmacy Healed perforation of ear drum URINALYSIS WITH REFLEX MICROSCOPIC AND CULTURE Routine 03/02/2025 4:09 PM EDT Mixed connective tissue disease ([facility] V24) Nonspecific abnormal results of kidney function study Polypharmacy Healed perforation of ear drum COMPREHENSIVE METABOLIC PANEL Routine 03/02/2025 4:09 PM EDT Mixed connective tissue disease ([facility] V24) Nonspecific abnormal results of kidney function study Polypharmacy Healed perforation of ear drum C1 ESTERASE INHIBITOR, FUNCTIONAL Routine 03/02/2025 4:09 PM EDT Mixed connective tissue disease ([facility] V24) Nonspecific abnormal results of kidney function study Polypharmacy Healed perforation of ear drum from Last 3 Months Results * (ABNORMAL) Urinalysis with reflex microscopic and culture (03/02/2025 4:09 PM EDT) Color, Urine Yellow Colorless, Yellow LAB URINALYSIS - AUTOMATED METHOD [facility] Clarity, Urine Clear Clear LAB URINALYSIS - AUTOMATED METHOD 03/02/2025 4:24 PM [facility] Specific [place] Urine 1.020 1.005 - 1.030 LAB URINALYSIS - AUTOMATED METHOD 03/02/2025 4:24 PM [facility] pH, Urine 6.0 5.0 - 8.0 pH LAB URINALYSIS - AUTOMATED METHOD 03/02/2025 4:24 PM [facility] Leukocytes, Urine Negative Negative WBCs/mcL LAB URINALYSIS - AUTOMATED METHOD 03/02/2025 4:24 PM [facility] Nitrite, Urine Negative Negative LAB URINALYSIS - AUTOMATED METHOD 03/02/2025 4:24 PM [facility] Protein, Urine 30(A) Negative mg/dL LAB URINALYSIS - AUTOMATED METHOD 03/02/2025 4:24 PM [facility] Glucose, Urine Negative Negative mg/dL LAB URINALYSIS - AUTOMATED METHOD 03/02/2025 4:24 PM [facility] Ketones, Urine Negative Negative mg/dL LAB URINALYSIS - AUTOMATED METHOD 03/02/2025 4:24 PM [facility] Blood, Urine Negative Negative mg/dL LAB URINALYSIS - AUTOMATED METHOD 03/02/2025 4:24 PM [facility] Urine Urine specimen obtained by clean catch procedure / Unknown Non-blood Collection / Unknown 03/02/2025 4:09 PM EDT 03/02/2025 4:20 PM EDT Olivia ALVAREZ LAB URINE ORDERABLES Final Resul t [facility] [address] [place] [address], [place] [phone] * (ABNORMAL) CBC auto differential (03/02/2025 4:09 PM EDT) [facility] WBC 7.1 4.0 - 10.5 K/mcL LAB HEMETOLOGY METHOD 03/02/2025 4:27 PM EDT [facility] RBC 2.96(L) 4.20 - 5.40 M/mcL LAB HEMETOLOGY METHOD 03/02/2025 4:27 PM EDT [facility] Hemoglobin 8.4(L) 12.5 - 16.0 g/dL LAB HEMETOLOGY METHOD 03/02/2025 4:27 PM EDT [facility] Hematocrit 26.1(L) 37.0 - 47.0 % LAB HEMETOLOGY METHOD 03/02/2025 4:27 PM EDT [facility] MCV 88.2 78.0 - 100.0 FL LAB HEMETOLOGY METHOD 03/02/2025 4:27 PM EDT [facility] MCH 28.4 25.0 - 33.0 pcg LAB HEMETOLOGY METHOD 03/02/2025 4:27 PM EDT [facility] MCHC 32.2 32.0 - 36.0 g/dL LAB HEMETOLOGY METHOD 03/02/2025 4:27 PM EDT [facility] RDW 13.7 12.1 - 16.2 % LAB HEMETOLOGY METHOD 03/02/2025 4:27 PM EDT [facility] Platelets 319 150 - 450 K/mcL LAB HEMETOLOGY METHOD 03/02[facility]2025 4[facility] MPV 8.7 7.4 - 11.4 FL LAB HEMETOLOGY METHOD 03/02/2025 4:27 PM [facility] Neutrophils Relative 65.0 44.0 - 74.0 % LAB HEMETOLOGY METHOD 03/02/2025 4:27 PM [facility] Lymphocytes Relative 17.1(L) 20.0 - 48.0 % LAB HEMETOLOGY METHOD 03/02/2025 4:27 PM [facility] Monocytes Relative 10.8 2.0 - 12.0 % LAB HEMETOLOGY METHOD 03/02/2025 4:27 PM [facility] Eosinophils Relative 6.2(H) 0.0 - 6.0 % LAB HEMETOLOGY METHOD 03/02/2025 4:27 PM [facility] Basophils Relative 0.6 0.0 - 2.0 % LAB HEMETOLOGY METHOD 03/02/2025 4:27 PM [facility] Neutrophils Absolute 4.63 1.80 - 7.80 K/mcL LAB HEMETOLOGY METHOD 03/02/2025 4:27 PM [facility] Lymphocytes Absolute 1.22 1.00 - 3.20 K/mcL LAB HEMETOLOGY METHOD 03/02/2025 4:27 PM [facility] Monocytes Absolute 0.77 0.00 - 0.80 K/mcL LAB HEMETOLOGY METHOD 03/02/2025 4:27 PM [facility] Eosinophils Absolute 0.44 0.00 - 0.50 K/mcL LAB HEMETOLOGY METHOD 03/02/2025 4:27 PM [facility] Basophils Absolute 0.04 0.00 - 0.20 K/[facility] LAB HEMETOLOGY METHOD 03/02/2025 4:27 PM EDT [facility] Blood Venous blood specimen / Unknown Venipuncture / Unknown 03/02/2025 4:09 PM EDT 03/02/2025 4:22 PM EDT us Olivia Balbina PA LAB BLOOD ORDERABLES Final Resul t [facility] [address] [place] [address], [place] [phone] * C1 esterase inhibitor, functional (03/02/2025 4:09 PM EDT) Pathologist [facility] C1 Esterase Inhibitor Function >100 % 03/10/2025 1:36 PM EDT [facility] Comment: Reference Range: > OR = 68 NORMAL 41-67 EQUIVOCAL < OR = 40 ABNORMAL Less than 40% of the reference functional activity indicates a likely diagnosis of hereditary angioedema or acquired C1 inhibitor deficiency. For additional information, please refer to http://education.[employer]/faq/FAQ54 (This link is being provided for informational/educational purposes only.) Test Performed at: [facility] [address] [address] Brenda Aleman MD, PhD, SACHIN Blood Venous blood specimen / Unknown Venipuncture / Unknown 03/02/2025 4:09 PM EDT 03/02/2025 4:22 PM EDT us Olivia Balbina PA LAB BLOOD ORDERABLES Final Resul t [facility] [address] [place] [address] * (ABNORMAL) Sedimentation rate (03/02/2025 4:09 PM EDT) Sed Rate 26(H) 0 - 20 mm/hr LAB HEMETOLOGY METHOD 03/02/2025 4:26 PM EDT [facility] Blood Venous blood specimen / Unknown Venipuncture / Unknown 03/02/2025 4:09 PM EDT 03/02/2025 4:22 PM EDT us Olivia Balbina PA LAB BLOOD ORDERABLES Final Resul t Performing Organization Address City/[facility]/ZIP Co de Phone Number [facility] [address] [place] [address], [place] [phone] * (ABNORMAL) Complement, total (03/02/2025 4:09 PM EDT) Complement, Total (CH50) 98(H) 42 - 95 U/mL 03/06/2025 3:20 AM EDT [facility] Comment: Test performed at [facility], [address], [place] [address] Frances Abdalla MD, PhD - Manager Operations Blood Venous blood specimen / Unknown Venipuncture / Unknown 03/02/2025 4:09 PM EDT 03/02/2025 4:22 PM EDT us Olivia Balbina PA LAB BLOOD ORDERABLES Final Resul t Performing Organization Address [facility] Co de Phone Number [facility] [address] [place] [address] * C3 complement (03/02/2025 4:09 PM EDT) C3 Complement 113 87 - 200 mg/dL LAB CHEMISTRY METHOD 03/02/2025 7:32 PM EDT [facility] Blood Venous blood specimen / Unknown Venipuncture / Unknown 03/02/2025 4:09 PM EDT 03/02/2025 4:22 PM EDT us Olivia Balbina PA LAB BLOOD ORDERABLES Final Resul t [facility] [address] [place] [address], [place] [phone] * C4 complement (03/02/2025 4:09 PM EDT) Pathologist [facility] C4 Complement 38 19 - 52 mg/dL LAB CHEMISTRY METHOD 03/02/2025 7:37 PM EDT [facility] Blood Venous blood specimen / Unknown Venipuncture / Unknown 03/02/2025 4:09 PM EDT 03/02/2025 4:22 PM EDT us Olivia Mortensen PA LAB BLOOD ORDERABLES Final Resul t [facility] [address] [place] [address], [place] [phone] * (ABNORMAL) C-reactive protein (03/02/2025 4:09 PM EDT) [facility] C-Reactive Protein 5.4(H) <=0.9 mg/dL LAB CHEMISTRY METHOD 03/02/2025 4:41 PM EDT [facility] Blood Venous blood specimen / Unknown Venipuncture / Unknown 03/02/2025 4:09 PM EDT 03/02/2025 4:22 PM EDT us Olivia Mortensen PA LAB BLOOD ORDERABLES Final Resul t [facility] [address] [place] [address], [place] [phone] * (ABNORMAL) Comprehensive metabolic panel (03/02/2025 4:09 PM EDT) [facility] Sodium 138 135 - 145 mmol/L LAB CHEMISTRY METHOD 03/02/2025 4:41 PM EDT [facility] Potassium 4.5 3.5 - 5.1 mmol/L LAB CHEMISTRY METHOD 03/02/2025 4:41 PM [facility] Chloride 104 98 - 107 mmol/L LAB CHEMISTRY METHOD 03/02/2025 4:41 PM [facility] CO2 25 24 - 32 mmol/L LAB CHEMISTRY METHOD 03/02/2025 4:41 PM [facility] Anion Gap 9 5 - 14 LAB CHEMISTRY METHOD 03/02/2025 4:41 PM [facility] Glucose 92 70 - 199 mg/dL LAB CHEMISTRY METHOD 03/02/2025 4:41 PM [facility] BUN 51(H) 7 - 17 mg/dL LAB CHEMISTRY METHOD 03/02/2025 4:41 PM [facility] Creatinine 3.87(H) 0.50 - 1.00 mg/dL LAB CHEMISTRY METHOD 03/02/2025 4:41 PM [facility] eGFR 13(L) >=60 mL/min/1. 73m2 LAB CHEMISTRY METHOD 03/02/2025 4:41 PM [facility] Comment:Calculation based on the Chronic Kidney Disease Epidemiology Collaboration (CKD-EPI) equation refit without adjustment for race. BUN/Creatinine Ratio 13.2 12.0 - 20.0 LAB CHEMISTRY METHOD 03/02/2025 4:41 PM [facility] Calcium 9.4 8.4 - 10.2 mg/dL LAB CHEMISTRY METHOD 03/02/2025 4:41 PM [facility] AST (SGOT) 12 5 - 40 unit/L LAB CHEMISTRY METHOD 03/02/2025 4:41 PM [facility] ALT (SGPT) 8 7 - 52 unit/L LAB CHEMISTRY METHOD 03/02/2025 4:41 PM [facility] Alkaline Phosphatase 105(H) 34 - 104 unit/L LAB CHEMISTRY METHOD 03/02/2025 4:41 PM EDT [facility] Total Protein 7.9 6.4 - 8.5 g/dL LAB CHEMISTRY METHOD 03/02/2025 4:41 PM EDT [facility] Albumin 4.3 3.5 - 5.0 g/dL LAB CHEMISTRY METHOD 03/02/2025 4:41 PM EDT [facility] Total Bilirubin 0.3 0.3 - 1.0 mg/dL LAB CHEMISTRY METHOD 03/02/2025 4:41 PM EDT [facility] Blood Venous blood specimen / Unknown Venipuncture / Unknown 03/02/2025 4:09 PM EDT 03/02/2025 4:22 PM EDT Olivia ALVAREZ LAB BLOOD ORDERABLES Final Resul t [facility] [address] [place] [address], [place] [phone] from Last 3 Months Insurance [facility] Care Teams Knockout Machine Operator Relationship Specialty Start Date End Date Tiarra Nevarez FNP [address] [place] [id number] PCP - General Family Medicine 10/02/18
--- OUTSIDE RECORDS SUMMARY | 2025-03-18 16:27 | XMS_ITS | Clinical Summary ---
Author Organization [facility] Address [address] [place] [address] Care Team Providers Care Manager Harbor Name Role Phone Roque Jorge Luisclara Carrie AG Primary Care Provider [phone] Allergies No known active allergies Medications Medication Sig Dispensed Refills Start Date End Date Status ergocalciferol (VITAMIN D2) capsule 16793 units Take 1 capsule (50,000 Units total) [...] 81 07/11/2024 11:42 AM EST Temperature 36.8 C (98.3 F) 07/13/2023 12:32 PM EST Respiratory Rate 16 05/16/2024 12:49 PM EDT [...] Shingrix-Zoster Vaccine (2 of 2) 06/29/2023 05/04/2023 DTap / Tdap / Td (2 - Td or Tdap) 11/04/2024 11/04/2014 Influenza Vaccine (#1) 2025 BMI Counseling 07/11/2025 07/11/2024, 02/17, 11/02/2023, Additional [...] age to complete this topic Care Teams Manager Harbor Relationship Specialty Start Date End Date Tiarra Nevarez APRN [address] [place] [address] PCP - General Family Medicine 10/02/18
== END 2025-03-18 16:24 | disposition home or self-care (01) ==
LOC: HO.HKAE 15:59
PROVIDERS: Visit Provider Internal Medicine Hypertension Specialist
DX: N18.9 Chronic kidney disease, unspecified (principal)
CPT/HCPCS: 99214

== ENCOUNTER 2025-06-10 15:32 | Outpatient (AMB) | payer BC, SELFPAY ==
[2025-06-10 15:37] VITALS: BP 132/62; PULSE 81; O2SAT 98; BMI 25.0
--- NOTE | 2025-06-10 15:37 | HO.NEPHOV ---
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 She was diagnosed with lupus more than 30 years ago. She was on Humira 40 mg weekly 2 doses and then every other week. She was referred back in 05/09/2022 for elevated serum creatinine 1.4. Since then creatinine has been between 1.1.2 mg/dL. In the past she had a trial of methotrexate which was discontinued due to hair loss. Recently she had a CT scan in 07/09/2023 which showed hilar adenopathy. She was seen by forging press lever tender and a CT scan with IV contrast has been recommended. 10/15/24 Feels abdominal bloating; BM every 3 days. Takes Miralax Recent serum creatinine was 2.2 , up from 1.7 mg/dL. She had resp infection last month She was no specific complaints. Currently on Certolizimab 12/10/2024. Overall she is feeling fine. Denies any specific complaints today. Accompanied by her . 03/18/25 s/p kidney biopsy 06/10/25 - The patient is a 60-year-old female CKD Overall feels better [facility] Medical History Uveitis Psoriasis Mixed collagen vascular disease Hypertension Surgical History History of cholecystectomy Family History Mother Hypertension Diabetes Cancer Sister Diabetes Hypertension Brother Hypertension Diabetes Maternal Aunt Diabetes Cancer Social History Alcohol intake: current Comment: Rare Patient Tobacco Use Status: Current someday Tobacco user Physical Exam Vital Signs: Last Vital Signs Pulse 81 06/10/25 15:37 BP 132/62 06/10/25 15:37 Pulse Ox 98 06/10/25 15:37 Oxygen Delivery Method Room Air 06/10/25 15:37 BMI result Body Mass Index 25.0 Const General: comfortable; No acute distress Orientation/consciousness: patient oriented x3 Eyes General: appearance normal, both eyes and all related structures Visual Salomon: normal visual salomon by confrontation Neck Neck: Yes supple and Yes no JVD Resp Effort & Inspection: normal respiratory effort and respiratory effort not decreased Auscultation: rhonchi Cardio Palpation: no palpable S3 and no palpable S4 Heart sounds: no rubs GI Inspection: Yes normal to inspection Palpation (GI): Soft to palpation Percussion: Yes normal to percussion Auscultation: normal bowel sounds General: Yes no CVA tenderness Back/Spine/Pelvis Back: no CVA tenderness Skin General skin exam: no petechiae and no purpura Neuro General: patient oriented x3 and no focal motor deficits Extrem General: No clubbing and No edema Results Reviewed Results Reviewed: Apr 2025 BUN/Cr 53/ 3.07 Hgb 8.3 Iron and Ferritin - low Nephrology Results: Hgb, (12.0-16.0) 9.0 g/dl L 02/19/25 WBC, (4.8-10.8) 5.9 X10*3/uL 02/19/25 Plt Count, (160-400) 304 X10*3/uL 02/19/25 Sodium, (135-145) 138 mmol/L 02/19/25 Potassium, (3.3-5.1) 4.1 mmol/L 02/19/25 Chloride, (96-108) 108 mmol/L 02/19/25 Carbon Dioxide, (22-29) 22 mmol/L 02/19/25 BUN, (9-16) 40 mg/dL H 02/19/25 Creatinine, (0.5-1.4) 3.38 mg/dL H 02/19/25 Calcium, (8.4-10.2) 9.2 mg/dL 02/19/25 Assessment & Plan Assessment & Plan (1) CKD (chronic kidney disease): Code(s): N18.9 - Chronic kidney disease, unspecified Category: Medical Plan Rolanda has chronic kidney disease with a baseline creatinine is around 1.4 mg/dL in the setting of connective tissue disease overlap syndrome/lupus/M CTD. Recently she was found to have mediastinal lymphadenopathy. Creatinine is bumped to 1.9. This may be due to hypoperfusion. Clinically she appears euvolemic no edema. Stopped Lasix and will repeat labs She has at a risk for contrast induced nephropathy. If possible we should avoid IV contrast. However if the repeat serum creatinine is less than 1.5, we could consider CT scan with IV contrast. Other option would be to try alternate imaging techniques to evaluate the adenopathy without IV contrast. BP better controlled Keep Amlodipine 5 mg QD stay on low salt diet. 10/15/24 Worsening creatinine Is this related to Cimzia? 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 Repeat renal panel today along with urine studies and serologies If renal fx worsens , will obtain a kidney biopsy 12/10/2024 Worsening renal function most likely due to Cimzia. We discussed the pros and cons. Discussed importance of obtaining a kidney biopsy for definite diagnosis she is agreeable. Ordered kidney biopsy. She will check with the government affairs manager to switch to a different agent. 03/18/25 Worsening renal function No s/s of uremia or fluid overlaod Biospy shows : Global sclerosis : 30% ; Tubular atrophy : 40-45% and Vascular sclerosis : Moderate No immunecomplex deposition or glomerular inflammation; No crescents Based on biospy, no need foor immunosuppression. Optimize renal function Recheck renal panel in few weeks along with HCT Continue to avoid nephrotoxins 06/10/25 Advanced CKD Biopsy as above Marginal improvement in creatinine No s/s of uremia or fluid overload Anemia- multifactorial Has Iron deficiency- will add Iron Orders: Orders Comprehensive Met. Panel 2 Months N18.9 - Chronic kidney disease, unspecified Complete Blood Count no Diff 2 Months N18.9 - Chronic kidney disease, unspecified Medications: New ferric citrate administer with a meal 210 mg PO TID 90 tabs 1RF Coding Level of Care Code Est Pt Level 4 (69978) Diagnoses CKD (chronic kidney disease) N18.9
--- OUTSIDE RECORDS SUMMARY | 2025-06-10 21:41 | XMS_ITS | Encounter Summary ---
Author Organization [facility] Address [address] [place] [address] Care Team Providers Care Flight Dispatcher Name Role Phone Veena Arellano MD Primary Care Provider [phone] Veena Arellano MD Unavailable [phone] Encounter Details Date Type Department Care Team (Late st Contact Info) Description 04/27/2018 Orders Only NON FC SA NON FC UNK Provider, Unknown Social History Tobacco Use Types Packs/Day Years Used Date Smoking Tobacco: Never Assessed Comments:Smoking Status:Toba accountant cost use:Light tobacco smoker Comments Unknown Sex and Gender Information Value Date Recorded Sex Assigned at Not on file Legal Sex Female 8:13 PM EDT Gender Identity Not on file Sexual Orientation Not on file documented as of this encounter Plan of Treatment Not on file documented as of this encounter Visit Diagnoses Not on filedocumented in this encounter Care Teams Flight Dispatcher Relationship Specialty Start Date End Date Veena Arellano MD [facility] Family Medicine [address] [place] [address] PCP - General 03/26/23 Veena Arellano MD [facility] Family Medicine [address] [place] [address] PCP - Backup PCP Family Medicine 09/20/23 documented as of this encounter
--- OUTSIDE RECORDS SUMMARY | 2025-06-10 21:41 | XMS_ITS | Clinical Summary ---
Author Organization [facility] Address [address] [place] [address] Phone Care Team Providers Care Financial Services Director Name Role Phone Roque, Tiarra NASSAR Primary Care Provider [phone] Medical History Medical History Date Comments Arthritis DX:Arthritis;COM MENT:RA Hypertension DX:Hypertension Uveitis DX:Uveitis Lupus DX:Lupus Psoriatic arthritis ([facility]/HCC V24, [facility]/HCC V28) DX:Psoriatic arthritis ([facility]) Social History Tobacco Use Types Packs/Day Years [...] Last Done Comments Breast Cancer Screening 1964 Colorectal Cancer Screening: Colonoscopy 1964 Cervical Cancer Screening: Pap Smear 1985 Cholesterol Screening (Lipid Panel) 07/28/2022 HIV Screening 07/28/2022 Hepatitis C Screening 07/28/2022 Social Influencers of Health Screening 07/28/2022 Zoster Vaccines (2 of 2) 06/29/2023 05/04/2023 Depression Screening 08/20/2024 DTaP,Tdap,and Td Vaccines (2 - Td or Tdap) 11/04/2024 11/04/2014 COVID-19 Vaccine (4 - season) 2025 08/26/2021, 12/23/2020, 11/16/2020 Influenza Vaccine (#1) 2025 Hypertension/CHF/CAD Annual BMP Blood Test 04/24/2026 04/24/2025, 03/02/2025, 11/24/2024, Additional history exists RSV Immunization Adult Patients [...] Procedure Name Priority Date/Time Associated Diagnosis Comments IRON AND TIBC Routine 04/24/2025 3:35 PM EDT Mixed connective tissue disease ([facility] V24) Nonspecific abnormal results of kidney function study Chronic kidney disease, unspecified FERRITIN Routine 04/24/2025 3:35 PM EDT Mixed connective tissue disease ([facility] V24) Nonspecific abnormal results of kidney function study Chronic kidney disease, unspecified BASIC METABOLIC PANEL Routine 04/24/2025 3:35 PM EDT Mixed connective tissue disease ([facility] V24) Nonspecific abnormal results of kidney function study Chronic kidney disease, unspecified COMPLETE BLOOD COUNT Routine 04/24/2025 3:35 PM EDT Mixed connective tissue disease ([facility] V24) Nonspecific abnormal results of kidney function study Chronic kidney disease, unspecified ANTI-NEUTROPHILIC CYTOPLASMIC ANTIBODY Routine 04/24/2025 3:34 PM EDT Mixed connective tissue disease ([facility] V24) Nonspecific abnormal results of kidney function study Chronic kidney disease, unspecified PROTEINASE 3 AUTOANTIBODY Routine 04/24/2025 3:34 PM EDT Mixed connective tissue disease ([facility] V24) Nonspecific abnormal results of kidney function study MYELOPEROXIDASE ANTIBODY Routine 04/24/2025 3:34 PM EDT Mixed connective tissue disease ([facility] [place]) Nonspecific abnormal results of kidney function study from Last 3 Months Results * (ABNORMAL) Iron and TIBC (04/24/2025 3:35 PM EDT) Iron 28(L) 37 - 170 mcg/dL LAB CHEMISTRY METHOD 04/24/2025 6:59 PM EDT [facility] UIBC 172 155 - 355 mcg/dL LAB CHEMISTRY METHOD 04/24/2025 6:59 PM EDT [facility] TIBC 200(L) 250 - 450 mcg/dL LAB CHEMISTRY METHOD 04/24/2025 6:59 PM EDT [facility] Iron Saturation 14(L) 20 - 45 % LAB CHEMISTRY METHOD 04/24/2025 6:59 PM EDT [facility] Blood Venous blood specimen / Unknown Venipuncture / Unknown 04/24/2025 3:35 PM EDT 04/24/2025 3:42 PM EDT us Eleuterio Lilibeth Jefferson MD LAB BLOOD ORDERABL ES Final Result [facility] [address] [place] [address], [place] [phone] * (ABNORMAL) Complete blood count (04/24/2025 3:35 PM EDT) WBC 6.4 4.0 - 10.5 K/mcL LAB HEMETOLOGY METHOD 04/24/2025 3:47 PM EDT [facility] RBC 2.93(L) 4.20 - 5.40 M/mcL LAB HEMETOLOGY [facility] Hemoglobin 8.3(L) 12.5 - 16.0 g/dL LAB HEMETOLOGY METHOD 04/24/2025 3[facility] Hematocrit 25.9(L) 37.0 - 47.0 % LAB HEMETOLOGY METHOD 04/24/2025 3:47 [facility] MCV 88.4 78.0 - 100.0 FL LAB HEMETOLOGY METHOD 04/24/2025 3:47 [facility] MCH 28.3 25.0 - 33.0 pcg LAB HEMETOLOGY METHOD 04/24/2025 3:47 [facility] MCHC 32.0 32.0 - 36.0 g/dL LAB HEMETOLOGY METHOD 04/24/2025 3:47 [facility] RDW 13.9 12.1 - 16.2 % LAB HEMETOLOGY METHOD 04/24/2025 3:47 [facility] Platelets 285 150 - 450 K/mcL LAB HEMETOLOGY METHOD 04/24/2025 3:47 [facility] MPV 8.4 7.4 - 11.4 FL LAB HEMETOLOGY METHOD 04/24/2025 3:47 PM EDT [facility] Blood Venous blood specimen / Unknown Venipuncture / Unknown 04/24/2025 3:35 PM EDT 04/24/2025 3:42 PM EDT us Eleuterio Jefferson MD LAB BLOOD ORDERABL ES Final Result [facility] [place] Reg. #:[id number] [address] [place] [address], [place] [phone] * (ABNORMAL) Ferritin (04/24/2025 3:35 PM EDT) Ferritin 141(H) 10 - 120 ng/mL LAB CHEMISTRY METHOD 04/24/2025 7:14 PM EDT [facility] Blood Venous blood specimen / Unknown Venipuncture / Unknown 04/24/2025 3:35 PM EDT 04/24/2025 3:42 PM EDT us Eleuterio Jefferson MD LAB BLOOD ORDERABL ES Final Result Performing Organization Address City/[facility]/ZIP Co de Phone Number [facility] [address] [place] [address], [place] [phone] * (ABNORMAL) Basic metabolic panel (04/24/2025 3:35 PM EDT) Sodium 138 135 - 145 mmol/L LAB CHEMISTRY METHOD 04/24/2025 4:01 PM EDT [facility] Potassium 4.5 3.5 - 5.1 mmol/L LAB CHEMISTRY METHOD 04/24/2025 4:01 PM EDT [facility] Chloride 107 98 - 107 mmol/L LAB CHEMISTRY METHOD 04/24/2025 4:[facility] CO2 24 24 - 32 mmol/L LAB CHEMISTRY METHOD 04/24/2025 4:[facility] Anion Gap 7 5 - 14 LAB CHEMISTRY METHOD 04/24/2025 4:[facility] Glucose 90 70 - 199 mg/dL LAB CHEMISTRY METHOD 04/24/2025 4:01 [facility] BUN 53(H) 7 - 17 mg/dL LAB CHEMISTRY METHOD 04/24/2025 4:01 PM [facility] Creatinine 3.07(H) 0.50 - 1.00 mg/dL LAB CHEMISTRY METHOD 04/24/2025 4:[facility] eGFR 17(L) >=60 mL/min/1. 73m2 LAB CHEMISTRY METHOD 04/24/2025 4:01 PM [facility] Comment:Calculation based on the Chronic Kidney Disease Epidemiology Collaboration (CKD-EPI) equation refit without adjustment for race. BUN/Creatinine Ratio 17.3 12.0 - 20.0 LAB CHEMISTRY METHOD 04/24/2025 4:01 [facility] Calcium 9.3 8.4 - 10.2 mg/dL LAB CHEMISTRY METHOD 04/24/2025 4:01 [facility] Blood Venous blood specimen / Unknown Venipuncture / Unknown 04/24/2025 3:35 PM EDT 04/24/2025 3:42 PM EDT Eleuterio Jefferson MD LAB BLOOD ORDERABL ES Final Result [facility] [place] Reg. #:[id number] [address] [place], [place] [address] [phone] * Proteinase 3 autoantibody (04/24/2025 3:34 PM EDT) Proteinase-3 (PR3) Ab <0.6 <2.0 U/mL 04/27/2025 2:34 PM EDT [facility] Comment: INTERPRETATION: Negative Test performed at [facility], [address] , [place] [address] Frances Abdalla MD, PhD - Household Appliance Repairer Blood Venous blood specimen / Unknown Venipuncture / Unknown 04/24/2025 3:34 PM EDT 04/24/2025 3:42 PM EDT [employer] PA LAB BLOOD ORDERABLES Final Resul t Performing Organization Address City/[facility]/ZIP Co de Phone Number [facility] [address] [place] [address] * Myeloperoxidase antibody (04/24/2025 3:34 PM EDT) Myeloperoxidase (MPO) Antibody <0.2 <3.5 U/mL 04/27/2025 2:34 PM EDT [facility] Comment: INTERPRETATION: Negative Test performed at [facility], [address] [place] [address] Frances Abdalla MD, PhD - Household Appliance Repairer Blood Venous blood specimen / Unknown Venipuncture / Unknown 04/24/2025 3:34 PM EDT 04/24/2025 3:42 PM EDT us [employer] PA LAB BLOOD ORDERABLES Final Resul t [facility] [address] [place] [address] * Anti-neutrophilic cytoplasmic antibody (04/24/2025 3:34 PM EDT) P-ANCA <1:20 <1:20 Titer 04/29/2025 11:52 AM EDT [facility] C-ANCA <1:20 <1:20 Titer 04/29/2025 11:52 AM EDT [facility] Comment: Test performed at [facility], [address], [place] [address] Frances Abdalla MD, PhD - Household Appliance Repairer Blood Venous blood specimen / Unknown Venipuncture / Unknown 04/24/2025 3:34 PM EDT 04/25/2025 10:34 AM EDT us Olivia ALVAREZ LAB BLOOD ORDERABLES Final Resul t [facility] [address] [place] [address] from Last 3 Months Insurance [facility] ([facility]) Care Teams Financial Services Director Relationship Specialty Start Date End Date Tiarra Nevarez FNP [address] [place] [id number] PCP - General Family Medicine 10/02/18
--- OUTSIDE RECORDS SUMMARY | 2025-06-10 21:42 | XMS_ITS | Clinical Summary ---
Author Organization [facility] Address [address] [place] [address] Care Team Providers Care Cleater Name Role Phone Veena Arellano MD Primary Care Provider [phone] Veena Arellano MD Unavailable [phone] Medications hydroCHLOROth iazide (HYDRODIURIL) 25 MG tablet [...] Smoking Tobacco: Never Assessed Comments:Smoking Status:Toba tobacco classer use:Light tobacco smoker Comments Unknown Sex and Gender Information Value Date Recorded Sex Assigned at Not on file Legal Sex Female 8:13 PM EDT Gender Identity Not on file Sexual Orientation Not on file Last Filed Vital Signs Vital Sign Reading Time Taken Comments Blood Pressure 138/80 12/05/2016 4:42 PM EDT LUE/Sitting LUE/Sitting Pulse - - Temperature 37.1 C (98.7 F) 12/05/2016 4:41 PM EDT Respiratory Rate - - Oxygen [...] (Shingrix) (1 of 2) 2014 COVID-19 Vaccine (1 - 2024-2 6 season) 2025 Influenza (#1) 2025 RSV (1 - 1-dose 75+ series) 2039 HPV Vaccine (No Doses Required) Completed Hep A Aged Out No longer eligi [...] this topic Zoster (Zostavax) Discontinued Care Teams Cleater Relationship Specialty Start Date End Date Veena Arellano MD [address] [address] PCP - General 03/26/23 Veena Arellano MD [address] [address] PCP - Backup PCP Family Medicine 09/20/23
--- OUTSIDE RECORDS SUMMARY | 2025-06-10 21:42 | XMS_ITS | Encounter Summary ---
Author Organization [facility] Address [address] [place] [address] Care Team Providers Care Manpower Development Specialist Manager Name Role Phone Tiarra Nevarez APRN Primary Care Provide r Encounter Details Date Type Department Care Team (Late st Contact Info) Description 04/03/[address] [facility] [address] [facility] [address] [place] [address] Cyrus Lewis MD [address] [place] [address] Social History Tobacco Use Types Packs/Day Years [...] on filedocumented in this encounter Care Teams Manpower Development Specialist Manager Relationship Specialty Start Date End Date Tiarra Nevarez APRN [address] [facility] [address] [place] [address] PCP - General Family Medicine 03/28/23 documented as of this encounter
--- OUTSIDE RECORDS SUMMARY | 2025-06-10 21:42 | XMS_ITS | Clinical Summary ---
Author Organization [facility] Address [address] [place] [address] Care Team Providers Care Staff Forester Name Role Phone Roque Jorge Luisclara Carrie AG Primary Care Provider [phone] Allergies No known active allergies Medications Medication Sig Dispensed Refills Start Date End Date Status ergocalciferol (VITAMIN D2) capsule 79622 units Take 1 capsule (50,000 Units total) [...] age to complete this topic Care Teams Staff Forester Relationship Specialty Start Date End Date Tiarra Nevarez APRN [address] [place] [address] PCP - General Family Medicine 10/02/18
--- OUTSIDE RECORDS SUMMARY | 2025-06-10 21:42 | XMS_ITS | Clinical Summary ---
Author Organization [facility] Address [address] [place] [address] Care Team Providers Care Working Second Hand Name Role Phone Tiarra Nevarez ANCELMO [...] (Ages 21-65) 1985 Mammogram 2004 RSV Vaccine 50 years and old er and Patients (1 - Risk 50-74 years 1-dose series) 2014 Influenza Vaccine 03/20/2025 Colonoscopy 04/03/2033 04/03/2023 Hepatitis B Vaccines Aged Out No long er eligible based on patient's age to complete this topic Insurance HMO [place] HMO Care Teams Working Second Hand Relationship Specialty Start Date End Date Tiarra Nevarez APRN 4 [facility] [address] [place] [address] PCP - General Family Medicine 03/28/23
--- OUTSIDE RECORDS SUMMARY | 2025-06-10 21:42 | XMS_ITS | Patient Health Record ---
Author Organization [facility] Address [address] [place] [id number] Care Team Providers Care Pack Worker Name Role Phone FAITH BURRISSETHAZUCENA Primary Care Provider [phone] Reason For Referral No Information Medications Medication SIG (Take, Route, Frequency, Duration) Notes Start Date End Date Status Vitamin D (Ergocalciferol) 2 oral 88904; Duration: 90 Active CombiPatch 0.05 mg-0.25 mg/24 hours transdermal 45700 Active Linzess 145 mcg oral 55869; Duration: 8 11/05/14 SAMPLES given #8 pills Lot#[id number] Exp 02/201508/20/1899 Active hydroCHLOROthiazide 25 mg oral 56517; Duration: 15 Pt needs ov. No further refills. Pls call MD office. Active Immunizations Vaccine Route Administration Date Status Comme nts Tdap Unknown 11/04/2014 Administered lot.[id number], EXP-12/18/16 Problems Problem Type SNOMED Code ICD Code Onset Dates Problem Status W/U Status Risk Notes Problem Essential hypertension (52856180) Unspecified essential hypertension (401.9) 015 Active confirmed mig_App-Unspec ified essential hypertension Problem Localized infection of skin AND/OR subcutaneous tissue (063266083) Other specified local infections of skin and subcutaneous tissue (686.8) 015 Active confirmed mig_App-Other specified local infections of skin and subcutaneous tissue Problem General examination of patient (052291662) Routine general medical examination at a health care facility (V70.0) 015 Active confirmed mig_App-Routin e general medical examination at a health care facility Problem Need for prophylactic vaccination and inoculation against diphtheria-tet anus-pertussis , combined [DTP] [DTaP] (V06.1) 015 Active confirmed mig_App-Need for prophylactic vaccination and inoculation against diphtheria-tet anus-pertussis , combined [DTP] [DTaP] Plan Of Treatment No Information Insurance Providers Payer Name Payer Address Payer Phone Subscriber Number Group Number Insured Name Patient Relationship to Insured Coverage Start Date Coverage End Date [facility] [address] [place], [place] [id number] [phone] [id number] Rolanda Medeiros Self - patient is the insured
== END 2025-06-10 15:53 | disposition home or self-care (01) ==
LOC: HO.HKAE 15:33
PROVIDERS: Visit Provider Internal Medicine Hypertension Specialist
DX: N18.9 Chronic kidney disease, unspecified (principal)
CPT/HCPCS: 99214